=== PATIENT | female | born 1940 | race Caucasian/White ===

== ENCOUNTER 2020-07-01 08:52 | Outpatient (CLI) | payer MEDICARE, BC, SELFPAY ==
--- NOTE | 2020-07-01 09:04 | XR_ITS ---
WS: [id number] LUMBAR SPINE FLEXION AND EXTENSION TECHNIQUE: 3 views of the lumbar spine: Lateral neutral, flexion, and extension views. CLINICAL INFORMATION: SPONDYLOLITHESIS OF LOW BACK COMPARISON: None. FINDINGS: Osteopenia. Grade 1 anterolisthesis L4 on L5 measuring 5 mm. Disc space narrowing worse at L3-L4 and L4-L5. Mild compression inferior endplate L2 vertebral body. This is new since the MRI in 2005. Moder ate facet arthropathy L5-S1. Aortic calcification. Bony fusion T12-L1 disc space. XR/XR lumbar spine f/e only [id number] IMPRESSION: 1. No instability on flexion-extension. 2. Mild compression inferior endplate L2 is new since 2006 but likely chronic.
--- NOTE | 2020-07-01 09:04 | CT_ITS ---
WS: [id number] CT LUMBAR SPINE TECHNIQUE: Noncontrast CT of the lumbar spine with coronal and sagittal reformatted images. CLINICAL INFORMATION: LOW BACK PAIN COMPARISON: MRI 12 18,006 DLP: 2000.[address] scans at [facility] use at least one of these dose optimization techniques: automat ed exposure control; mA and/or kV adjustment per patient size (includes targeted exams where dose is matched to clinical indication); or iterative reconstruction. FINDINGS: Lumbar scoliosis. Mild compression inferior endplate L2 with loss of approximately 25% vertebral body height. This is new since 2005 by appears chronic. Disc space narrowing worse at L3-L4 and L4-L5 wit h vacuum disc phenomenon. Grade 1 anterolisthesis L4 on L5 measuring 5 mm. L1-L2: No significant disc bulging. Mild facet arthropathy. Spinal canal and foramen are patent. L2-L3: Mild disc bulging with mild central canal stenosis. Slight narrowing of the subarticular reces s bilaterally. Moderate facet arthropathy. L3-L4: Mild disc bulging with right eccentric disc osteophytic ridging. Mild to moderate right and no significant left foraminal narrowing. Moderate facet arthropathy. Slight impingement right subarticu lar recess. L4-L5: Grade 1 anterolisthesis. Mild disc bulging with osteophytic ridging. Moderate central canal st enosis with impingement on the traversing L5 nerve roots. Mild right and no significant left foramina l narrowing. Moderate to advanced facet arthropathy. L5-S1: Mild annular bulging. Spinal canal and foramen are patent. Mild to moderate facet arthropathy. Partially visualized left renal cysts. CT/CT lumbar spine wo con* [id number] IMPRESSION: 1. Lumbar scoliosis convex left. 2. Grade 1 anterolisthesis L4 on L5 progressed since 2005. 3. Compression of the inferior endplate L2 is new since 2005 but likely chroni c. MRI could be used to assess for edema if low back pain. 4. Right eccentric disc osteophyte complex L3-4 with mild to moderate right fo raminal narrowing. 5. Moderate central canal stenosis L4-5 due to disc bulging with anterolisthes is and facet arthropathy/ ligament flavum hypertrophy. Impingement on the trave rsing L5 nerve roots bilaterally. 6. Mild right L4-5 foraminal narrowing. 7. Moderate facet arthropathy L3-L5.
== END 2020-07-01 08:53 | disposition home or self-care (01) ==
LOC: RADWPI 09:03
PROVIDERS: Family Provider General Practice; Visit Provider Nurse Practitioner
DX: M43.16 Spondylolisthesis, lumbar region (principal); S32.020A Wedge compression fracture of second lumbar vertebra, initial encounter for closed fracture; X58.XXXA Exposure to other specified factors, initial encounter
CPT/HCPCS: 72120; 72131

== ENCOUNTER 2020-12-27 16:23 | Inpatient (IN) | payer MEDICARE, BC, SELFPAY ==
[2020-12-27] VITALS (7 sets, daily range): BP systolic 87–110; BP diastolic 50–90; PULSE 69–71; RESP 14–25; TEMP 36.6; O2SAT 98–100; BMI 32.3
--- NOTE | 2020-12-27 16:28 | XRR_ITS ---
PROCEDURE INFORMATION: Exam: XR Right Femur Exam date and time: 12/27/2020 5:05 PM Age: 80 years old Clinical indication: Injury or trauma; Fall; Blunt trauma; Thigh or upper leg; Right; Prior surgery; Surgery type: Rthip and RT knee TECHNIQUE: Imaging protocol: XR Right femur. Views: 2 views. COMPARISON: No relevant prior studies available. FINDINGS: Bones/joints: Total right hip arthroplasty is present. Alignment is unremarkable. No periprosthetic fracture. No evidence of prosthetic loosening. No lytic, aggressive bone lesion. Right knee total arthroplasty is present. Alignment is normal. No periprosthetic fracture around the knee. Area of linear dystrophic calcifications in the subcutaneous fat of the proximal lateral right hip. Soft tissues: No soft tissue gas. XR/XR femur RT 1V [id number] IMPRESSION: Unremarkable radiographic appearance of the right hip and knee total arthroplasty.
--- NOTE | 2020-12-27 16:28 | XRR_ITS ---
PROCEDURE INFORMATION: Exam: XR Right Hip with Pelvis when Performed Exam date and time: 12/27/2020 5:05 PM Age: 80 years old Clinical indication: Injury or trauma; Fall; Blunt trauma (contusions or hematomas); Right; Prior surgery; Surgery type: Hip and knee TECHNIQUE: Imaging protocol: XR Right hip with pelvis when performed. Views: 2 or 3 views. COMPARISON: No relevant prior studies available. 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 No periprosthetic fracture. No periprosthetic lucency. Linear area of dystrophic calcification in the subcutaneous fat of the superficial lateral proximal right hip area. Soft tissues: Unremarkable. XR/XR hip RT 2-3V wo/w pel* [id number] IMPRESSION: Unremarkable plain film radiographic appearance of total right hip arthroplasty.
--- NOTE | 2020-12-27 16:28 | XRR_ITS ---
PROCEDURE INFORMATION: Exam: XR Left Ankle Exam date and time: 12/27/2020 5:05 PM Age: 80 years old Clinical indication: Injury or trauma; Fall; Blunt trauma; Ankle; Left TECHNIQUE: Imaging protocol: XR Left ankle. Views: 1 or 2 views. COMPARISON: No relevant prior studies available. FINDINGS: Bones/joints: Diffuse osseous demineralization. Joint space alignments are intact. Small nondisplaced fracture lucency transversely oriented involving the distal fibular epiphysis. Distal tibia unremarkable. Soft tissues: Diffuse soft tissue swelling. Other findings: Arterial wall calcifications. XR/XR ankle LT 2V [id number] IMPRESSION: Acute nondisplaced left distal fibular epiphyseal fracture. Adjacent soft tissue swelling.
--- NOTE | 2020-12-27 16:28 | ECG_ITS ---
[facility] Test Date: 2020-12-27 Pat Name: Gisel Odom Department: Room: Gender: Female Colleter: : 1940 Requested By: Vini Callahan Order Number: [id number] Cameron MD: Eli Haines M.D. Measurements Intervals [place] Rate: 69 P: RI: QRS: -68 QRSD: 214 T: 97 QT: 538 QTc: 580 Interpretive Statements ELECTRONIC VENTRICULAR PACEMAKER PROLONGED QT INTERVAL CRITICAL TEST RESULT No previous ECG available for comparison Electronically Signed On 12-28-2020 16:05:56 [employer] by Eli Haines M.D. [email or web address]
--- NOTE | 2020-12-27 16:31 | ED_ITS ---
Documented by User: Vini Callahan MD 12/27/20 17:51 HPI - Trauma General: Chief Complaint: Fall Stated Complaint: LEFT ANKLE PAIN S/P FALL Time Seen by Provider: 12/27/20 16:24 Source: patient, EMS and RN notes reviewed Limitations: no limitations History of Present Illness: HPI narrative: This patient is a 80-year-old female who presents to the emergency department with complaint of significant left lower leg and ankle pain and right hip pain secondary to a fall in her home. Patient is states she lost her balance. Patient does wear oxygen chronically. EMS reported that she had a low blood pressure. Patient is awake and sitting up and moving freely. Will have nursing staff get a quick blood pressure to make sure it stable prior to any pain medications being given. complaint: fall, injury and pain Onset (ago): minute(s) Loss of Consciousness: no Location - Extremities: Left: lower leg and ankle and Right: hip and thigh Severity scale (1-10): 9 Associated symptoms: Reports abdominal pain; Denies back pain, chest pain, chills, fever(s), headache(s), nausea or vomiting Review of Systems General: Reports: 10 or more systems reviewed and unremarkable except in HPI and below Const: Denies: fever(s), chills, body aches or fatigue Eyes: Denies: change in vision or blurry vision ENMT: Denies: throat pain, hoarseness or mouth pain Card: Denies: chest pain, palpitations, irregular heart rhythm, edema, swelling of feet/ankles or lightheadedness Resp: Denies: dyspnea, productive cough, non-productive cough, wheezing or pain on inspiration GI: Reports: abdominal pain; Denies: nausea or vomiting : Reports: flank pain; Denies: difficulty voiding, dysuria, urinary frequency, urinary urgency or urinary hesitancy Musc: Reports: extremity pain, extremity swelling, joint pain and joint swelling; Denies: neck pain, back pain, joint redness, joint warmth or limited range of mo tion Skin/Breast: Denies: rash, pruritus, erythema or skin tenderness Neuro: Denies: headache(s), numbness in extremities or weakness in extremities Psych: Denies: anxiety or depression Physical Exam Const: COMMON NORMALS: no acute distress, average body habitus, patient oriented x3, no limitations, healthy appearing, alert and well nourished HENMT: COMMON NORMALS: normocephalic, atraumatic, external ears normal, EAC's normal, TM's normal bilaterally, Normal external nose present and Normal nasal mucous membranes and turbinates present HEAD & SCALP: normocephalic and atraumatic NOSE: Normal external nose present and Normal nasal mucous membranes and turbinates present EXTERNAL EAR: Yes external ears normal EXTERNAL AUDITORY CANAL: EAC's normal TYMPANIC MEMBRANE: TM's normal bilaterally Neck/C-Spine: COMMON NORMALS: full ROM, no lymphadenopathy, supple, no meningeal signs, no JVD, Thyroid normal and No carotid bruits THYROID: Thyroid normal Chest: COMMONS NORMALS: normal inspection of the chest, normal palpation of entire chest wall, normal inspection of the breasts and normal palpation of the breasts Breast/axilla inspection: Yes normal inspection of the breasts BREAST/AXILLA PALPATION: Yes normal palpation of the breasts Resp: COMMON NORMALS: normal respiratory effort, No retractions, No use of accessory muscles, clear to auscultation bilaterally and percussion normal AUSCULTATION: clear to auscultation bilaterally PERCUSSION: percussion normal Cardio: COMMON NORMALS: no JVD, regular rate, regular rhythm, S1 normal heart sound present, S2 normal heart sound present, No gallops present (Cardio), No clicks present (Cardio), No murmurs present (Cardio), No rub (Cardio) and Peripheral pulses 2+ throughout RATE: regular rate RHYTHM: regular rhythm HEART SOUNDS: S1 normal heart sound present and S2 normal heart sound present PERIPHERAL PULSES: Peripheral pulses 2+ throughout GI: COMMON NORMALS: Normal to inspection, nondistended, normoactive bowel sounds present, Soft to palpation, non-tender, No hepatosplenomegaly present, no masses and no bruits PALPATION: Yes Soft to palpation and Yes No hepatosplenomegaly present : COMMON NORMALS: Yes no CVA tenderness, Yes normal external appearance, Yes normal appearance of the vagina, Yes normal appearance of the cervix, Yes normal bimanual exam, Yes No adnexal tenderness and Yes no masses BLADDER/KIDNEY EXAM: Yes no CVA tenderness BIMANUAL EXAM - VAGINA & UTERUS: Yes normal bimanual exam Back/Pelvis: COMMON NORMALS: no CVA tenderness, thoracic and lumbar spine normal to inspection, no thoracic nor lumbar tenderness, thoraco-lumbar ROM normal and straight leg raise negative bilaterally Extremity: COMMON NORMALS: capillary refill normal, no joint enlargement, no clubbing, cyanosis or edema, no calf tenderness and no pedal edema RIGHT LOWER EXTREMITY: Yes hip joint (Significant pain on palpation. Decreased range of motion due to pain.) Right hip: Yes neurovascular exam LEFT LOWER EXTREMITY: Yes lower leg and Yes ankle joint (Deformity to the distal lower leg on the left and ankle joint concerning fo) Left ankle: Yes palpation and Yes ROM Neuro: COMMON NORMALS: patient oriented x3 SENSORIUM/ORIENTATION: Yes alert MENINGEAL SIGNS: Yes no meningeal signs MDM - Trauma Medical Records: Attestation: I reviewed the patient's medical records. Lab Data: Attestation: I reviewed the patient's lab results. Labs: Lab Results 12/27/20 12/27/20 12/27/20 Range/Units 16:40 16:40 16:40 WBC 12.3 H (4.0-10.0) 10^3/ uL RBC 3.42 L (4.1-5.3) 10^6/u L Hgb 10.0 L (11.5-15.3) g/dL Hct 30.2 L (37.0-47.0) % MCV 88.3 (81-99) fL MCH 29.2 (28.0-34.0) pg MCHC 33.1 (30.0-36.0) g/dL RDW 12.2 (12.1-15.1) % Plt Count 292 (130-400) 10^3/c mm MPV 10.3 (7.4-10.4) fL Neut % (Auto) 81.3 % Lymph % (Auto) 12.1 % [place] % (Auto) 5.0 % Eos % (Auto) 0.7 % Baso % (Auto) 0.2 % Neut # (Auto) 9.96 H (1.8-7.7) 10^3/u L Lymph # (Auto) 1.5 (0.8-4.8) 10^3/u L [place] # (Auto) 0.6 (0.2-0.9) 10^3/u L Eos # (Auto) 0.1 (0.0-0.8) 10^3/u L Baso # (Auto) 0.0 (0.0-0.1) 10^3/u L Nucleated RBC % (a uto) 0 % Nucleated RBCs # 0.0 /100WBC PT 20.60 H (12.1-14.9) SECO NDS INR 1.70 H (0.8-1.2) APTT 34.5 (23.9-36.7) SECO NDS Sodium 133 L (136-145) mmol/L Potassium 3.8 (3.5-5.1) mmol/L Chloride 95 L (98-107) mmol/L Carbon Dioxide 22 (22-29) mmol/L Anion Gap 19.8 H (5-19) BUN 25 H (8-23) mg/dL Creatinine 2.3 H (0.5-0.9) mg/dL GFR Calculation Not Reportable Glucose 119 H (65-115) mg/dL Calculated Osmolal ity 282 L (285-295) mOsm/k g Lactate (0.5-2.2) mmol/L Calcium 9.4 (8.5-10.5) mg/dL Total Bilirubin 0.4 (0.15-1.2) mg/dL AST 15 (0-32) U/L ALT 7 (0-33) U/L Alkaline Phosphata se 127 H (35-105) IU/L Troponin T Gen 5 n g/L (0-10) ng/L NT-Pro-B Natriuret Pep 2173 H (0-450) pg/mL Total Protein 6.3 L (6.6-8.7) g/dL Albumin 3.8 (3.5-5.2) g/dL Globulin 2.5 (1.3-4.6) g/dL Urine Color (Yellow) Urine Appearance (CLEAR) Urine pH (5-7) Ur Specific Gravit y (1.005-1.030) Urine Protein (Negative) Urine Glucose (UA) (Normal) Urine Ketones (Negative) Urine Blood (Negative) Urine Nitrate (Negative) Urine Bilirubin (Negative) Urine Urobilinogen (Negative) mg/dL Ur Leukocyte April ase (Negative) Urine Opiates Scre en (Negative) ng/mL Ur Barbiturates Sc reen (Negative) ng/mL Ur Phencyclidine S crn (Negative) ng/mL Ur Amphetamines Sc reen (Negative) ng/mL U Benzodiazepines Scrn (Negative) ng/mL Urine Cocaine Scre en (Negative) ng/mL U Marijuana (THC) Screen (Negative) ng/mL 12/27/20 12/27/20 12/27/20 Range/Units 16:40 18:00 18:00 WBC (4.0-10.0) 10^3/ uL RBC (4.1-5.3) 10^6/u L Hgb (11.5-15.3) g/dL Hct (37.0-47.0) % MCV (81-99) fL MCH (28.0-34.0) pg MCHC (30.0-36.0) g/dL RDW (12.1-15.1) % Plt Count (130-400) 10^3/c mm MPV (7.4-10.4) fL Neut % (Auto) % Lymph % (Auto) % [place] % (Auto) % Eos % (Auto) % Baso % (Auto) % Neut # (Auto) (1.8-7.7) 10^3/u L Lymph # (Auto) (0.8-4.8) 10^3/u L [place] # (Auto) (0.2-0.9) 10^3/u L Eos # (Auto) (0.0-0.8) 10^3/u L Baso # (Auto) (0.0-0.1) 10^3/u L Nucleated RBC % (a uto) % Nucleated RBCs # /100WBC PT (12.1-14.9) SECO NDS INR (0.8-1.2) APTT (23.9-36.7) SECO NDS Sodium (136-145) mmol/L Potassium (3.5-5.1) mmol/L Chloride (98-107) mmol/L Carbon Dioxide (22-29) mmol/L Anion Gap (5-19) BUN (8-23) mg/dL Creatinine (0.5-0.9) mg/dL GFR Calculation Glucose (65-115) mg/dL Calculated Osmolal ity (285-295) mOsm/k g Lactate (0.5-2.2) mmol/L Calcium (8.5-10.5) mg/dL Total Bilirubin (0.15-1.2) mg/dL AST (0-32) U/L ALT (0-33) U/L Alkaline Phosphata se (35-105) IU/L Troponin T Gen 5 n g/L 44 H (0-10) ng/L NT-Pro-B Natriuret Pep (0-450) pg/mL Total Protein (6.6-8.7) g/dL Albumin (3.5-5.2) g/dL Globulin (1.3-4.6) g/dL Urine Color Yellow (Yellow) Urine Appearance Clear (CLEAR) Urine pH 5 (5-7) Ur Specific Gravit y 1.015 (1.005-1.030) Urine Protein Neg (Negative) Urine Glucose (UA) Norm (Normal) Urine Ketones Negative (Negative) Urine Blood Neg (Negative) Urine Nitrate Negative (Negative) Urine Bilirubin Neg (Negative) Urine Urobilinogen Norm (Negative) mg/dL Ur Leukocyte April ase Negative (Negative) Urine Opiates Scre en Negative (Negative) ng/mL Ur Barbiturates Sc reen Negative (Negative) ng/mL Ur Phencyclidine S crn Negative (Negative) ng/mL Ur Amphetamines Sc reen Negative (Negative) ng/mL U Benzodiazepines Scrn Negative (Negative) ng/mL Urine Cocaine Scre en Negative (Negative) ng/mL U Marijuana (THC) Screen Negative (Negative) ng/mL 12/27/20 Range/Units 18:49 WBC (4.0-10.0) 10^3/ uL RBC (4.1-5.3) 10^6/u L Hgb (11.5-15.3) g/dL Hct (37.0-47.0) % MCV (81-99) fL MCH (28.0-34.0) pg MCHC (30.0-36.0) g/dL RDW (12.1-15.1) % Plt Count (130-400) 10^3/c mm MPV (7.4-10.4) fL Neut % (Auto) % Lymph % (Auto) % [place] % (Auto) % Eos % (Auto) % Baso % (Auto) % Neut # (Auto) (1.8-7.7) 10^3/u L Lymph # (Auto) (0.8-4.8) 10^3/u L [place] # (Auto) (0.2-0.9) 10^3/u L Eos # (Auto) (0.0-0.8) 10^3/u L Baso # (Auto) (0.0-0.1) 10^3/u L Nucleated RBC % (a uto) % Nucleated RBCs # /100WBC PT (12.1-14.9) SECO NDS INR (0.8-1.2) APTT (23.9-36.7) SECO NDS Sodium (136-145) mmol/L Potassium (3.5-5.1) mmol/L Chloride (98-107) mmol/L Carbon Dioxide (22-29) mmol/L Anion Gap (5-19) BUN (8-23) mg/dL Creatinine (0.5-0.9) mg/dL GFR Calculation Glucose (65-115) mg/dL Calculated Osmolal ity (285-295) mOsm/k g Lactate 3.7 H (0.5-2.2) mmol/L Calcium (8.5-10.5) mg/dL Total Bilirubin (0.15-1.2) mg/dL AST (0-32) U/L ALT (0-33) U/L Alkaline Phosphata se (35-105) IU/L Troponin T Gen 5 n g/L (0-10) ng/L NT-Pro-B Natriuret Pep (0-450) pg/mL Total Protein (6.6-8.7) g/dL Albumin (3.5-5.2) g/dL Globulin (1.3-4.6) g/dL Urine Color (Yellow) Urine Appearance (CLEAR) Urine pH (5-7) Ur Specific Gravit y (1.005-1.030) Urine Protein (Negative) Urine Glucose (UA) (Normal) Urine Ketones (Negative) Urine Blood (Negative) Urine Nitrate (Negative) Urine Bilirubin (Negative) Urine Urobilinogen (Negative) mg/dL Ur Leukocyte April ase (Negative) Urine Opiates Scre en (Negative) ng/mL Ur Barbiturates Sc reen (Negative) ng/mL Ur Phencyclidine S crn (Negative) ng/mL Ur Amphetamines Sc reen (Negative) ng/mL U Benzodiazepines Scrn (Negative) ng/mL Urine Cocaine Scre en (Negative) ng/mL U Marijuana (THC) Screen (Negative) ng/mL EKG Data^: EKG 1: Attestation: I personally reviewed and interpreted this EKG as follows: EKG interpretation date: 12/27/20 EKG interpretation time: 17:02 Prior EKG tracings: not available for review Interpretation: Paced rhythm heart rate 69 nonspecific EKG Discharge Plan Discharge Patient Disposition: Admitted As Inpatient Clinical Impression: Syncope Fall Qualifiers: Encounter type: initial encounter Qualified Code(s): W19.XXXA - Unspecified fall, initial encounter Fibula fracture Qualifiers: Encounter type: initial encounter Fibula location: proximal Fracture type: closed Fracture morphology: unspecified fracture morphology Laterality: left Qualified Code(s): S82.832A - Other fracture of upper and lower end of left fibula, initial encounter for closed fracture Condition: Stable Coding Level of Care Code ED Patient Support Tech for Chg Fwd Exam Comprehensive Documented by User: Jason Levy MD 12/27/20 20:30 HPI - Trauma General: Chief Complaint: Fall Stated Complaint: LEFT ANKLE PAIN S/P FALL Time Seen by Provider: 12/27/20 16:24 MDM - Trauma MDM Narrative: Medical decision making narrative: Patient presents here with fibular fracture from a fall. Patient here is not able to ambulate and I feel with the weather she would not be able to get in her house. I spoke to the hospitalist will admit for observation. She has no other injuries. Lab Data: Labs: Lab Results 12/27/20 12/27/20 12/27/20 Range/Units 16:40 16:40 16:40 WBC 12.3 H (4.0-10.0) 10^3/ uL RBC 3.42 L (4.1-5.3) 10^6/u L Hgb 10.0 L (11.5-15.3) g/dL Hct 30.2 L (37.0-47.0) % MCV 88.3 (81-99) fL MCH 29.2 (28.0-34.0) pg MCHC 33.1 (30.0-36.0) g/dL RDW 12.2 (12.1-15.1) % Plt Count 292 (130-400) 10^3/c mm MPV 10.3 (7.4-10.4) fL Neut % (Auto) 81.3 % Lymph % (Auto) 12.1 % [place] % (Auto) 5.0 % Eos % (Auto) 0.7 % Baso % (Auto) 0.2 % Neut # (Auto) 9.96 H (1.8-7.7) 10^3/u L Lymph # (Auto) 1.5 (0.8-4.8) 10^3/u L [place] # (Auto) 0.6 (0.2-0.9) 10^3/u L Eos # (Auto) 0.1 (0.0-0.8) 10^3/u L Baso # (Auto) 0.0 (0.0-0.1) 10^3/u L Nucleated RBC % (a uto) 0 % Nucleated RBCs # 0.0 /100WBC PT 20.60 H (12.1-14.9) SECO NDS INR 1.70 H (0.8-1.2) APTT 34.5 (23.9-36.7) SECO NDS Sodium 133 L (136-145) mmol/L Potassium 3.8 (3.5-5.1) mmol/L Chloride 95 L (98-107) mmol/L Carbon Dioxide 22 (22-29) mmol/L Anion Gap 19.8 H (5-19) BUN 25 H (8-23) mg/dL Creatinine 2.3 H (0.5-0.9) mg/dL GFR Calculation Not Reportable Glucose 119 H (65-115) mg/dL Calculated Osmolal ity 282 L (285-295) mOsm/k g Lactate (0.5-2.2) mmol/L Calcium 9.4 (8.5-10.5) mg/dL Total Bilirubin 0.4 (0.15-1.2) mg/dL AST 15 (0-32) U/L ALT 7 (0-33) U/L Alkaline Phosphata se 127 H (35-105) IU/L Troponin T Gen 5 n g/L (0-10) ng/L NT-Pro-B Natriuret Pep 2173 H (0-450) pg/mL Total Protein 6.3 L (6.6-8.7) g/dL Albumin 3.8 (3.5-5.2) g/dL Globulin 2.5 (1.3-4.6) g/dL Urine Color (Yellow) Urine Appearance (CLEAR) Urine pH (5-7) Ur Specific Gravit y (1.005-1.030) Urine Protein (Negative) Urine Glucose (UA) (Normal) Urine Ketones (Negative) Urine Blood (Negative) Urine Nitrate (Negative) Urine Bilirubin (Negative) Urine Urobilinogen (Negative) mg/dL Ur Leukocyte April ase (Negative) Urine Opiates Scre en (Negative) ng/mL Ur Barbiturates Sc reen (Negative) ng/mL Ur Phencyclidine S crn (Negative) ng/mL Ur Amphetamines Sc reen (Negative) ng/mL U Benzodiazepines Scrn (Negative) ng/mL Urine Cocaine Scre en (Negative) ng/mL U Marijuana (THC) Screen (Negative) ng/mL 12/27/20 12/27/20 12/27/20 Range/Units 16:40 18:00 18:00 WBC (4.0-10.0) 10^3/ uL RBC (4.1-5.3) 10^6/u L Hgb (11.5-15.3) g/dL Hct (37.0-47.0) % MCV (81-99) fL MCH (28.0-34.0) pg MCHC (30.0-36.0) g/dL RDW (12.1-15.1) % Plt Count (130-400) 10^3/c mm MPV (7.4-10.4) fL Neut % (Auto) % Lymph % (Auto) % [place] % (Auto) % Eos % (Auto) % Baso % (Auto) % Neut # (Auto) (1.8-7.7) 10^3/u L Lymph # (Auto) (0.8-4.8) 10^3/u L [place] # (Auto) (0.2-0.9) 10^3/u L Eos # (Auto) (0.0-0.8) 10^3/u L Baso # (Auto) (0.0-0.1) 10^3/u L Nucleated RBC % (a uto) % Nucleated RBCs # /100WBC PT (12.1-14.9) SECO NDS INR (0.8-1.2) APTT (23.9-36.7) SECO NDS Sodium (136-145) mmol/L Potassium (3.5-5.1) mmol/L Chloride (98-107) mmol/L Carbon Dioxide (22-29) mmol/L Anion Gap (5-19) BUN (8-23) mg/dL Creatinine (0.5-0.9) mg/dL GFR Calculation Glucose (65-115) mg/dL Calculated Osmolal ity (285-295) mOsm/k g Lactate (0.5-2.2) mmol/L Calcium (8.5-10.5) mg/dL Total Bilirubin (0.15-1.2) mg/dL AST (0-32) U/L ALT (0-33) U/L Alkaline Phosphata se (35-105) IU/L Troponin T Gen 5 n g/L 44 H (0-10) ng/L NT-Pro-B Natriuret Pep (0-450) pg/mL Total Protein (6.6-8.7) g/dL Albumin (3.5-5.2) g/dL Globulin (1.3-4.6) g/dL Urine Color Yellow (Yellow) Urine Appearance Clear (CLEAR) Urine pH 5 (5-7) Ur Specific Gravit y 1.015 (1.005-1.030) Urine Protein Neg (Negative) Urine Glucose (UA) Norm (Normal) Urine Ketones Negative (Negative) Urine Blood Neg (Negative) Urine Nitrate Negative (Negative) Urine Bilirubin Neg (Negative) Urine Urobilinogen Norm (Negative) mg/dL Ur Leukocyte April ase Negative (Negative) Urine Opiates Scre en Negative (Negative) ng/mL Ur Barbiturates Sc reen Negative (Negative) ng/mL Ur Phencyclidine S crn Negative (Negative) ng/mL Ur Amphetamines Sc reen Negative (Negative) ng/mL U Benzodiazepines Scrn Negative (Negative) ng/mL Urine Cocaine Scre en Negative (Negative) ng/mL U Marijuana (THC) Screen Negative (Negative) ng/mL 12/27/20 Range/Units 18:49 WBC (4.0-10.0) 10^3/ uL RBC (4.1-5.3) 10^6/u L Hgb (11.5-15.3) g/dL Hct (37.0-47.0) % MCV (81-99) fL MCH (28.0-34.0) pg MCHC (30.0-36.0) g/dL RDW (12.1-15.1) % Plt Count (130-400) 10^3/c mm MPV (7.4-10.4) fL Neut % (Auto) % Lymph % (Auto) % [place] % (Auto) % Eos % (Auto) % Baso % (Auto) % Neut # (Auto) (1.8-7.7) 10^3/u L Lymph # (Auto) (0.8-4.8) 10^3/u L [place] # (Auto) (0.2-0.9) 10^3/u L Eos # (Auto) (0.0-0.8) 10^3/u L Baso # (Auto) (0.0-0.1) 10^3/u L Nucleated RBC % (a uto) % Nucleated RBCs # /100WBC PT (12.1-14.9) SECO NDS INR (0.8-1.2) APTT (23.9-36.7) SECO NDS Sodium (136-145) mmol/L Potassium (3.5-5.1) mmol/L Chloride (98-107) mmol/L Carbon Dioxide (22-29) mmol/L Anion Gap (5-19) BUN (8-23) mg/dL Creatinine (0.5-0.9) mg/dL GFR Calculation Glucose (65-115) mg/dL Calculated Osmolal ity (285-295) mOsm/k g Lactate 3.7 H (0.5-2.2) mmol/L Calcium (8.5-10.5) mg/dL Total Bilirubin (0.15-1.2) mg/dL AST (0-32) U/L ALT (0-33) U/L Alkaline Phosphata se (35-105) IU/L Troponin T Gen 5 n g/L (0-10) ng/L NT-Pro-B Natriuret Pep (0-450) pg/mL Total Protein (6.6-8.7) g/dL Albumin (3.5-5.2) g/dL Globulin (1.3-4.6) g/dL Urine Color (Yellow) Urine Appearance (CLEAR) Urine pH (5-7) Ur Specific Gravit y (1.005-1.030) Urine Protein (Negative) Urine Glucose (UA) (Normal) Urine Ketones (Negative) Urine Blood (Negative) Urine Nitrate (Negative) Urine Bilirubin (Negative) Urine Urobilinogen (Negative) mg/dL Ur Leukocyte April ase (Negative) Urine Opiates Scre en (Negative) ng/mL Ur Barbiturates Sc reen (Negative) ng/mL Ur Phencyclidine S crn (Negative) ng/mL Ur Amphetamines Sc reen (Negative) ng/mL U Benzodiazepines Scrn (Negative) ng/mL Urine Cocaine Scre en (Negative) ng/mL U Marijuana (THC) Screen (Negative) ng/mL Imaging Data^: xr ankle L: Radiologist's impression: [address] [address] XRay Report Signed Patient: Gisel Odom Unit #: [id number] : 1940 Age/Sex: 80 / F ADM Date: 12/27/20 Loc: ER Room/Bed: Attending Dr: Ordering Provider/Ordering MD: Vini Callahan MD Date of Service: 12/27/20 Procedure(s): XR ankle LT 2V 60038 Accession Number(s): [id number] Report Number: [id number] PROCEDURE INFORMATION: Exam: XR Left Ankle Exam date and time: 12/27/2020 5:05 PM Age: 80 years old Clinical indication: Injury or trauma; Fall; Blunt trauma; Ankle; Left TECHNIQUE: Imaging protocol: XR Left ankle. Views: 1 or 2 views. COMPARISON: No relevant prior studies available. FINDINGS: Bones/joints: Diffuse osseous demineralization. Joint space alignments are intact. Small nondisplaced fracture lucency transversely oriented involving the distal fibular epiphysis. Distal tibia unremarkable. Soft tissues: Diffuse soft tissue swelling. Other findings: Arterial wall calcifications. XR/XR ankle LT 2V 22165 IMPRESSION: Acute nondisplaced left distal fibular epiphyseal fracture. Adjacent soft tissue swelling. xr hip r: Radiologist's impression: [facility] [address] [place] [address]. [place] [address] XRay Report Signed Patient: Gisel Odom Unit #: [id number] : 1940 Age/Sex: 80 / F ADM Date: 12/27/20 Loc: ER Room/Bed: Attending Dr: Ordering Provider/Ordering MD: Vini Callahan MD Date of Service: 12/27/20 Procedure(s): XR hip RT 2-3V wo/w pel* 54543 Accession Number(s): [id number] Report Number: [id number] PROCEDURE INFORMATION: Exam: XR Right Hip with Pelvis when Performed Exam date and time: 12/27/2020 5:05 PM Age: 80 years old Clinical indication: Injury or trauma; Fall; Blunt trauma (contusions or hematomas); Right; Prior surgery; Surgery type: Hip and knee TECHNIQUE: Imaging protocol: XR Right hip with pelvis when performed. Views: 2 or 3 views. COMPARISON: No relevant prior studies available. 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 No periprosthetic fracture. No periprosthetic lucency. Linear area of dystrophic calcification in the subcutaneous fat of the superficial lateral proximal right hip area. Soft tissues: Unremarkable. XR/XR hip RT 2-3V wo/w pel* [id number] IMPRESSION: Unremarkable plain film radiographic appearance of total right hip arthroplasty. xr femur r: Radiologist's impression: [facility] [address] [place] [address]. [place] [address] XRay Report Signed Patient: Gisel Odom Unit #: [id number] : 1940 Age/Sex: 80 / F ADM Date: 12/27/20 Loc: ER Room/Bed: Attending Dr: Ordering Provider/Ordering MD: Vini Callahan MD Date of Service: 12/27/20 Procedure(s): XR femur RT 1V 19399 Accession Number(s): [id number] Report Number: [id number] PROCEDURE INFORMATION: Exam: XR Right Femur Exam date and time: 12/27/2020 5:05 PM Age: 80 years old Clinical indication: Injury or trauma; Fall; Blunt trauma; Thigh or upper leg; Right; Prior surgery; Surgery type: Rthip and RT knee TECHNIQUE: Imaging protocol: XR Right femur. Views: 2 views. COMPARISON: No relevant prior studies available. FINDINGS: Bones/joints: Total right hip arthroplasty is present. Alignment is unremarkable. No periprosthetic fracture. No evidence of prosthetic loosening. No lytic, aggressive bone lesion. Right knee total arthroplasty is present. Alignment is normal. No periprosthetic fracture around the knee. Area of linear dystrophic calcifications in the subcutaneous fat of the proximal lateral right hip. Soft tissues: No soft tissue gas. XR/XR femur RT 1V 64762 IMPRESSION: Unremarkable radiographic appearance of the right hip and knee total arthroplasty. CXR: Radiologist's impression: [address] [address] XRay Report Signed Patient: Gisel Odom Unit #: [id number] : 1940 Age/Sex: 80 / F ADM Date: 12/27/20 Loc: ER Room/Bed: Attending Dr: Ordering Provider/Ordering MD: Vini Callahan MD Date of Service: 12/27/20 Procedure(s): XR chest 1V portable [id number] Accession Number(s): [id number] Report Number: [id number] PROCEDURE INFORMATION: Exam: XR Chest, 1 View Exam date and time: 12/27/2020 5:05 PM Age: 80 years old Clinical indication: Injury or trauma; Fall; Blunt trauma (contusions or hematomas) TECHNIQUE: Imaging protocol: XR of the chest Views: 1 view. COMPARISON: No relevant prior studies available. FINDINGS: Tubes, catheters and devices: Left chest ICD position is grossly unremarkable. Lungs: Unremarkable. No consolidation. Pleural spaces: Unremarkable. No pleural effusion. No pneumothorax. Heart/Mediastinum: Mild cardiac enlargement. Bones/joints: Left shoulder reverse arthroplasty with unremarkable alignment. XR/XR chest 1V portable [id number] IMPRESSION: No acute thoracic traumatic injury identified. CT Head: Radiologist's impression: [facility] [place] [address] CT Scan Report Signed Patient: Gisel Odom Unit #: [id number] : [id number] Age/Sex: 80 / F ADM Date: 12/27/20 Loc: ER Room/Bed: Attending Dr: Ordering Provider/Ordering MD: Jason Levy MD Date of Service: 12/27/20 Procedure(s): CT head wo con* 43021 Accession Number(s): [id number] Report Number: [id number] PROCEDURE INFORMATION: Exam: CT Head Without Contrast Exam date and time: 12/27/2020 6:52 PM Age: 80 years old Clinical indication: Injury or trauma; Blunt trauma (contusions or hematomas); Without loss of consciousness; Patient HX: Fall from standing denies loc TECHNIQUE: Imaging protocol: Computed tomography of the head without contrast. Radiation optimization: All CT scans at this facility use at least one of these dose optimization techniques: automated exposure control; mA and/or kV adjustment per patient size (includes targeted exams where dose is matched to clinical indication); or iterative reconstruction. COMPARISON: No relevant prior studies available. RADIATION DOSE METRICS: Total DLP (mGy-cm): 1481.03 FINDINGS: Brain: There is moderate cerebral atrophy. No midline shift of brain. No intracranial hemorrhage. No intracranial mass. Camacho matter white matter interfaces are preserved. Cerebral ventricles: No ventriculomegaly. Bones/joints: Unremarkable. No acute fracture. Paranasal sinuses: Visualized sinuses are unremarkable. No fluid levels. Mastoid air cells: Visualized mastoid air cells are well aerated. Soft tissues: Unremarkable. CT/CT head wo con* [id number] IMPRESSION: Negative for intracranial injury. Radiation Dose CTDIVOL = (mGy): DLP = 1481.03 (mGy-cm) Other CT: Radiologist's impression: [address] [address] [address] Scan Report Signed Patient: Gisel Odom Unit #: [id number] : 1940 Age/Sex: 80 / F ADM Date: 12/27/20 Loc: ER Room/Bed: Attending Dr: Ordering Provider/Ordering MD: Jason Levy MD Date of Service: 12/27/20 Procedure(s): CT cervical spin wo con* [id number] Accession Number(s): [id number] Report Number: [id number] PROCEDURE INFORMATION: Exam: CT Cervical Spine Without Contrast Exam date and time: 12/27/2020 6:52 PM Age: 80 years old Clinical indication: Injury or trauma; Blunt trauma; Patient HX: Fall from standing TECHNIQUE: Imaging protocol: Computed tomography images of the cervical spine without contrast. Radiation optimization: All CT scans at this facility use at least one of these dose optimization techniques: automated exposure control; mA and/or kV adjustment per patient size (includes targeted exams where dose is matched to clinical indication); or iterative reconstruction. COMPARISON: No relevant prior studies available. RADIATION DOSE METRICS: Total DLP (mGy-cm): 619.89 FINDINGS: Vertebrae: No acute fractures. Anterolisthesis of C2 on C3 about 3 mm. Anterolisthesis of C3 on C4 about 2 mm. Anterolisthesis of C4 on C5 about 3 mm. Facet joints are intact with unremarkable alignment. Severe diffuse spondyloarthropathy changes. Bones are diffusely demineralized. Soft tissues: Unremarkable. Vasculature: Atherosclerotic plaques bilateral carotid artery bulbs. Lungs: Lung apices are normal. CT/CT cervical spin wo con* [id number] IMPRESSION: Negative for acute cervical spine fracture. Radiation Dose CTDIVOL = (mGy): DLP = 619.89 (mGy-cm) Discharge Plan Discharge Patient Disposition: Admitted As Inpatient Clinical Impression: Syncope Fall Qualifiers: Encounter type: initial encounter Qualified Code(s): W19.XXXA - Unspecified fall, initial encounter Fibula fracture Qualifiers: Encounter type: initial encounter Fibula location: proximal Fracture type: closed Fracture morphology: unspecified fracture morphology Laterality: left Qualified Code(s): S82.832A - Other fracture of upper and lower end of left fibula, initial encounter for closed fracture Condition: Stable Coding Level of Care Code ED Patient Support Tech for Sherrie Fwd Exam Comprehensive
[2020-12-27] MEDS: ondansetron 2 mg/ML SDV 2 mL 4 MG IVP (16:55)
[2020-12-27] MEDS: sodium chloride 0.9% 1,000 ML 999 ML IV (16:57)
[2020-12-27 17:30] LABS: Partial Thromboplastin Time 34.5 SECONDS (23.9-36.7)
[2020-12-27 17:34] LABS: Troponin T (5th) Once 44 ng/L (0-10)
--- NOTE | 2020-12-27 17:37 | XRR_ITS ---
PROCEDURE INFORMATION: Exam: XR Left Knee Exam date and time: 12/27/2020 6:45 PM Age: 80 years old Clinical indication: Pain and injury or trauma; Fall; Blunt trauma; Knee; Left; Injury date: 12/27/20 TECHNIQUE: Imaging protocol: XR Left knee. Views: 3 views. COMPARISON: No relevant prior studies available. FINDINGS: Bones/joints: There is a nondisplaced comminuted fracture of the proximal fibular diaphysis/diametaphysis. Soft tissues: Normal. XR/XR knee LT 3V* [id number] IMPRESSION: Nondisplaced comminuted fracture of the proximal fibular diaphysis/diametaphysis.
[2020-12-27 17:42] LABS: Alanine Aminotransferase 7 U/L (0-33); Albumin Level 3.8 g/dL (3.5-5.2); Alkaline Phosphatase 127 IU/L (35-105); Anion Gap 19.8 (5-19); Aspartate Amino Transferase 15 U/L (0-32); Blood Urea Nitrogen 25 mg/dL (8-23); Calcium 9.4 mg/dL (8.5-10.5); Carbon Dioxide 22 mmol/L (22-29); Chloride 95 mmol/L (98-107); Globulin 2.5 g/dL (1.3-4.6); Glucose 119 mg/dL (65-115); NT Pro B Type Natriuretic Pept 2173 pg/mL (0-450); Osmolality Calculated 282 mOsm/kg (285-295); Potassium 3.8 mmol/L (3.5-5.1); Sodium 133 mmol/L (136-145); Total Bilirubin 0.4 mg/dL (0.15-1.2); Total Protein 6.3 g/dL (6.6-8.7)
[2020-12-27] MEDS: naloxone 0.4 mg/ml SDV IVP (17:43)
[2020-12-27 17:51] LABS: Basophils % 0.2 %; Eosinophils # 0.1 10^3/uL (0.0-0.8); Eosinophils % 0.7 %; Hematocrit 30.2 % (37.0-47.0); Lymphocytes # 1.5 10^3/uL (0.8-4.8); Lymphocytes % 12.1 %; Mean Corpuscular HGB Conc 33.1 g/dL (30.0-36.0); Mean Corpuscular Hemoglobin 29.2 pg (28.0-34.0); Mean Corpuscular Volume 88.3 fL (81-99); Mean Platelet Volume 10.3 fL (7.4-10.4); Monocytes # 0.6 10^3/uL (0.2-0.9); Neutrophils # 9.96 10^3/uL (1.8-7.7); Neutrophils % 81.3 %; Nucleated Red Blood Cells % 0 %; Platelet Count 292 10^3/cmm (130-400); Red Blood Count 3.42 10^6/uL (4.1-5.3); Red Cell Distribution Width 12.2 % (12.1-15.1); White Blood Count 12.3 10^3/uL (4.0-10.0)
--- NOTE | 2020-12-27 18:05 | CTR_ITS ---
PROCEDURE INFORMATION: Exam: CT Head Without Contrast Exam date and time: 12/27/2020 6:52 PM Age: 80 years old Clinical indication: Injury or trauma; Blunt trauma (contusions or hematomas); Without loss of consciousness; Patient HX: Fall from standing denies loc TECHNIQUE: Imaging protocol: Computed tomography of the head without contrast. Radiation optimization: All CT scans at this facility use at least one of these dose optimization techniques: automated exposure control; mA and/or kV adjustment per patient size (includes targeted exams where dose is matched to clinical indication); or iterative reconstruction. COMPARISON: No relevant prior studies available. RADIATION DOSE METRICS: Total DLP (mGy-cm): 1481.03 FINDINGS: Brain: There is moderate cerebral atrophy. No midline shift of brain. No intracranial hemorrhage. No intracranial mass. Camacho matter white matter interfaces are preserved. Cerebral ventricles: No ventriculomegaly. Bones/joints: Unremarkable. No acute fracture. Paranasal sinuses: Visualized sinuses are unremarkable. No fluid levels. Mastoid air cells: Visualized mastoid air cells are well aerated. Soft tissues: Unremarkable. CT/CT head wo con* [id number] IMPRESSION: Negative for intracranial injury. Radiation Dose CTDIVOL = (mGy): DLP = 1481.03 (mGy-cm)
--- NOTE | 2020-12-27 18:05 | CTR_ITS ---
PROCEDURE INFORMATION: Exam: CT Cervical Spine Without Contrast Exam date and time: 12/27/2020 6:52 PM Age: 80 years old Clinical indication: Injury or trauma; Blunt trauma; Patient HX: Fall from standing TECHNIQUE: Imaging protocol: Computed tomography images of the cervical spine without contrast. Radiation optimization: All CT scans at this facility use at least one of these dose optimization techniques: automated exposure control; mA and/or kV adjustment per patient size (includes targeted exams where dose is matched to clinical indication); or iterative reconstruction. COMPARISON: No relevant prior studies available. RADIATION DOSE METRICS: Total DLP (mGy-cm): 619.89 FINDINGS: Vertebrae: No acute fractures. Anterolisthesis of C2 on C3 about 3 mm. Anterolisthesis of C3 on C4 about 2 mm. Anterolisthesis of C4 on C5 about 3 mm. Facet joints are intact with unremarkable alignment. Severe diffuse spondyloarthropathy changes. Bones are diffusely demineralized. Soft tissues: Unremarkable. Vasculature: Atherosclerotic plaques bilateral carotid artery bulbs. Lungs: Lung apices are normal. CT/CT cervical spin wo con* [id number] IMPRESSION: Negative for acute cervical spine fracture. Radiation Dose CTDIVOL = (mGy): DLP = 619.89 (mGy-cm)
--- NOTE | 2020-12-27 18:05 | CTR_ITS ---
PROCEDURE INFORMATION: Exam: CT Abdomen And Pelvis Without Contrast Exam date and time: 12/27/2020 6:52 PM Age: 80 years old Clinical indication: Injury or trauma; Blunt; Generalized; Prior surgery; Surgery date: 6+ months; Surgery type: Hyst, b hips; Patient HX: Fall from standing TECHNIQUE: Imaging protocol: Computed tomography of the abdomen and pelvis without contrast. Radiation optimization: All CT scans at this facility use at least one of these dose optimization techniques: automated exposure control; mA and/or kV adjustment per patient size (includes targeted exams where dose is matched to clinical indication); or iterative reconstruction. COMPARISON: CR XR hip LT 2-3V wo/w pel* [id number] 12/27/2020 6:36 PM RADIATION DOSE METRICS: Total DLP (mGy-cm): 1412.91 FINDINGS: Lungs: Moderate emphysema. Lung bases are clear. Liver: Normal. No mass. Gallbladder and bile ducts: Normal. No calcified stones. No ductal dilation. Pancreas: Normal. No ductal dilation. Spleen: Normal. No splenomegaly. Adrenal glands: Normal. No mass. Kidneys and ureters: Severe cortical atrophy of both kidneys. No hydronephrosis. Several simple left renal cortical cyst. No renal stones. Stomach and bowel: Large fecal volume. No focal inflammation of bowel or mesentery. No evidence of bowel obstruction or perforation. Appendix: No evidence of appendicitis. Intraperitoneal space: Negative for pneumoperitoneum. Negative for hemoperitoneum. Vasculature: Diffuse atherosclerosis of abdominal aorta without aneurysm. Lymph nodes: Unremarkable. No enlarged lymph nodes. Urinary bladder: Bladder decompressed via Ruiz catheter. Reproductive: Hysterectomy. Bones/joints: Bilateral hip arthroplasty with unremarkable alignment. There is a small fracture defect in the right-sided inferior pubic ramus of uncertain chronicity. There appears to be some bone callus. Mild vertebral body wedging in the lumbar spine at L2 is age indeterminate but no convincing evidence of acute fracture lucency. Grade 1 L4-L5 spondylolisthesis secondary to facet joint arthritis. Severe diffuse spondyloarthropathy of spine. Soft tissues: No soft tissue contusions in the abdominal wall. CT/CT abdomen pelvis wo con [id number] IMPRESSION: 1. No acute abdominopelvic injury is identified. 2. Nondisplaced right inferior pubic ramus fracture; suspect nonacute finding. 3. Mild severity age indeterminate L2 vertebral fracture; favor nonacute finding. COMMENTS: Consistent with the [employer]'s Incidental Findings Committee white paper (J Am Adilson Radiol 2018): Any incidental renal lesion less than 1 cm or classified as too small to characterize, or any incidental cystic renal lesion characterized as simple-appearing, is likely benign. No follow-up imaging is recommended for these lesions per consensus recommendations based on imaging criteria. Radiation Dose CTDIVOL = (mGy): DLP = 1412.91 (mGy-cm)
[2020-12-27 18:11] LABS: Add Urine Microscopic? NO
[2020-12-27 18:14] LABS: Bilirubin Urine Neg (Negative); Blood Urine Neg (Negative); Glucose Urine UA Norm (Normal); Ketones Urine Negative (Negative); Leukocyte Esterase Urine Negative (Negative); Nitrate Urine Negative (Negative); Protein Urine Neg (Negative); Specific Gravity, Urine 1.015 (1.005-1.030); Urine Appearance Clear (CLEAR); Urine Color Yellow (Yellow); Urobilinogen Urine Norm (Negative); pH Urine 5 (5-7)
[2020-12-27 18:21] LABS: Amphetamines Screen Urine Negative (Negative); Barbiturates Screen Urine Negative (Negative); Benzodiazepines Screen Urine Negative (Negative); Cocaine Screen Urine Negative (Negative); Opiate Screen Urine Negative (Negative); PCP Screen Urine Negative (Negative); THC Screen Urine Negative (Negative)
--- NOTE | 2020-12-27 18:33 | XRR_ITS ---
PROCEDURE INFORMATION: Exam: XR Left Hip with Pelvis when Performed Exam date and time: 12/27/2020 6:47 PM Age: 80 years old Clinical indication: Pain and injury or trauma; Fall; Blunt trauma (contusions or hematomas); Hip pain; Injury date: 12/27/20; Prior surgery; Surgery type: Left hip, right hip TECHNIQUE: Imaging protocol: XR Left hip with pelvis when performed. Views: 2 or 3 views. COMPARISON: No relevant prior studies available. FINDINGS: Bones/joints: The patient is status post left total hip arthroplasty. No evidence of hardware related complication. No fracture or dislocation seen. Soft tissues: Unremarkable. XR/XR hip LT 2-3V wo/w pel* [id number] IMPRESSION: 1. Status post left total hip arthroplasty, without evidence of hardware related complication. 2. No fracture or dislocation.
[2020-12-27 19:13] LABS: Lactate (Lactic Acid level) 3.7 mmol/L (0.5-2.2)
--- NOTE | 2020-12-27 22:04 | PM.HP ---
Providers/Chief Complaint Admitting Physician: Moniac Ragland MD Primary Care Provider: Dr Phillip Harrison Chief Complaint: LEFT ANKLE PAIN S/P FALL History of Present Illness Gisel Odom is a 80 year old female who presented to the emergency room after a fall today in which she sustained an injury to her left leg. She was sitting down at the table when she stood up and she states she is not really sure what happened she just went down. She denies any prodromal symptoms. She was feeling okay. The only thing she has reported is some shortness of breath, particularly with exertion. No history of chest pain. No symptoms similar to what she had when she had to get her stents placed which included shoulder and neck pain. Denies lower extremity edema, cough productive or nonproductive. She does follow with a mill control operator in [place]. She states a stress test about a year ago was unremarkable. She has a pacemaker due to a history of atrial fibrillation. It was checked about a year ago. In the emergency room patient had plain films of the lumbar spine, femur, ankle, chest, knee as well as hips and pelvis. She also had CT, cervical spine, lumbar spine as well as abdomen and pelvis. Imaging studies revealed compression of the inferior endplate L2 which is new since last study but likely chronic, nondisplaced right inferior pubic rami fracture that was felt to be nonacute, nondisplaced comminuted fracture of the left proximal fibular diaphysis as well as an acute nondisplaced left distal fibular epiphyseal fracture also on the left. Case was discussed with Dr. Villeda. Splint was placed. She is chronically on Xarelto and was found to have acute kidney injury or chronic kidney disease that she is unaware of. She was also having borderline blood pressures. She lives at home with her normally. The last week of November he had major pelvic surgery. He can go stay with her daughter and son-in-law although there are limitations to their physical ability also which will necessitate assistance getting home so that she can safely get into the house and in the midst of the current weather. She is to be nonweightbearing and most assistive aids are are not conducive to safe utilization during the winter weather event. With her cardiac history she also would benefit from monitoring clinically to rule out other possibilities besides simple orthostasis/vasovagal event. She is agreeable with this plan. 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) ENMT: Denies: throat pain, dry mouth or nasal congestion Card: Reports: syncope and dyspnea on exertion; Denies: chest pain, palpitations, edema, swelling of feet/ankles, lightheadedness or orthopnea Resp: Reports: dyspnea; Denies: productive cough or non-productive cough GI: Denies: abdominal pain, nausea, vomiting, diarrhea or constipation : Denies: difficulty voiding (Normally but she is worried about it now) Musc: Reports: extremity pain Skin/Breast: Denies: rash or pruritus Neuro: Denies: headache(s), numbness in extremities, weakness in extremities or dizziness Psych: Denies: anxiety or depression Feliz/Lymph: Reports: easy bruising; Denies: easy bleeding Medications/Allergies Home Medications Medication Instructions Recorded Confirmed Last Taken Type aluminum-magnesium hydroxide 30 ml PO BID 12/27/20 12/27/20 Unknown History [Mylanta] amlodipine 10 mg PO DAILY 12/27/20 12/27/20 Unknown History benazepril 20 mg PO DAILY 12/27/20 12/27/20 Unknown History bumetanide 1 mg PO DAILY 12/27/20 12/27/20 Unknown History clopidogrel [Plavix] 75 mg PO DAILY 12/27/20 12/27/20 Unknown History guaifenesin [Mucinex] 1,200 mg PO BID 12/27/20 12/27/20 Unknown History montelukast 10 mg PO DAILY 12/27/20 12/27/20 Unknown History paroxetine HCl 20 mg PO DAILY 12/27/20 12/27/20 Unknown History pseudoephedrine-acetaminophen tab 12/27/20 Unknown History [Sinus] rivaroxaban [Xarelto] 20 mg PO DAILY 12/27/20 12/27/20 Unknown History simvastatin 20 mg PO DAILY 12/27/20 12/27/20 Unknown History Allergies Allergy/AdvReac Type Severity Reaction Status Date / Time Penicillins Allergy ALGY-Difficulty Verified 12/27/20 16:42 Breathing PFSH Acute PFSH: Medical History (Updated 12/28/20 @ 08:39 by Monica Ragland MD) Atrial fibrillation 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 CAD (coronary artery disease) Depression Dyslipidemia Hypertension Pacemaker Surgical History (Updated 12/28/20 @ 06:10 by Monica Ragland MD) History of coronary angioplasty with insertion of stent x 2 Mtn Home History of hip surgery History of hysterectomy History of knee surgery History of permanent cardiac pacemaker placement History of shoulder surgery Family History (Updated 12/28/20 @ 05:51 by Monica Ragland MD) Mother CAD (coronary artery disease) Father CAD (coronary artery disease) Social History (Updated 12/28/20 @ 05:51 by Monica Ragland MD) Smoking and tobacco status: former smoker Alcohol intake: never Substance/Drug Use: never Household members: spouse Marital status: Vitals/I&O/Wt Last Vital Signs Temp 97.9 F 12/27/20 21:34 Pulse 69 12/27/20 21:34 Resp 24 H 12/27/20 21:34 BP 98/62 12/27/20 21:34 Pulse Ox 100 12/27/20 21:34 12/27/20 12/27/20 12/27/20 06:59 14:59 22:59 Intake Total 1000 / 1000 Balance 1000 / 1000 Weight last 48 hrs Weight 90.718 kg Physical Exam Const: OTHER: Alert, oriented x3, cooperative HENMT: OTHER: Normocephalic atraumatic, moist mucus membranes Eye: OTHER: Pupils equally round and reactive to light Neck/C-Spine: OTHER: Supple Chest: OTHER: Pacemaker palpated left upper chest Resp: OTHER: Clear to auscultation bilaterally, breath sounds are decreased at both bases but no rales or wheezes noted Cardio: OTHER: Regular, no murmurs, no jugular venous distention GI: OTHER: Abdomen soft, nontender, no flank pain, positive bowel sounds : OTHER: Ruiz catheter noted Extremity: NARRATIVE EXTREMITY EXAM: Left lower extremity in splint, can move toes, capillary refill is brisk at the toes. Neuro: OTHER: Face symmetric, speech clear, moves all extremities Psych: OTHER: Normal affect Skin: OTHER: Dry skin Urinary Catheter Management^: Ruiz: Cath Placed During This Visit: yes Reason for Continuing Indwelling Catheter: Required Immobilization for Trauma or Surgery or Anesthesia Urinary Catheter Date of Insertion: 12/27/20 Urinary Catheter Time of Insertion: 18:03 Data : 12/28/20 04:55 12/28/20 04:55 Other Labs: Laboratory Last Values WBC 12.3 10^3/uL (4.0-10.0) H 12/27/20 16:40 RBC 3.42 10^6/uL (4.1-5.3) L 12/27/20 16:40 Hgb 10.0 g/dL (11.5-15.3) L 12/27/20 16:40 Hct 30.2 % (37.0-47.0) L 12/27/20 16:40 MCV 88.3 fL (81-99) 12/27/20 16:40 MCH 29.2 pg (28.0-34.0) 12/27/20 16:40 MCHC 33.1 g/dL (30.0-36.0) 12/27/20 16:40 RDW 12.2 % (12.1-15.1) 12/27/20 16:40 Plt Count 292 10^3/cmm (130-400) 12/27/20 16:40 MPV 10.3 fL (7.4-10.4) 12/27/20 16:40 Neut % (Auto) 81.3 % 12/27/20 16:40 Lymph % (Auto) 12.1 % 12/27/20 16:40 Wilkin % (Auto) 5.0 % 12/27/20 16:40 Eos % (Auto) 0.7 % 12/27/20 16:40 Baso % (Auto) 0.2 % 12/27/20 16:40 Neut # (Auto) 9.96 10^3/uL (1.8-7.7) H 12/27/20 16:40 Lymph # (Auto) 1.5 10^3/uL (0.8-4.8) 12/27/20 16:40 Wilkin # (Auto) 0.6 10^3/uL (0.2-0.9) 12/27/20 16:40 Eos # (Auto) 0.1 10^3/uL (0.0-0.8) 12/27/20 16:40 Baso # (Auto) 0.0 10^3/uL (0.0-0.1) 12/27/20 16:40 Nucleated RBC % (auto) 0 % 12/27/20 16:40 Nucleated RBCs # 0.0 /100WBC 12/27/20 16:40 PT 20.60 SECONDS (12.1-14.9) H 12/27/20 16:40 INR 1.70 (0.8-1.2) H 12/27/20 16:40 APTT 34.5 SECONDS (23.9-36.7) 12/27/20 16:40 Sodium 133 mmol/L (136-145) L 12/27/20 16:40 Potassium 3.8 mmol/L (3.5-5.1) 12/27/20 16:40 Chloride 95 mmol/L (98-107) L 12/27/20 16:40 Carbon Dioxide 22 mmol/L (22-29) 12/27/20 16:40 Anion Gap 19.8 (5-19) H 12/27/20 16:40 BUN 25 mg/dL (8-23) H 12/27/20 16:40 Creatinine 2.3 mg/dL (0.5-0.9) H 12/27/20 16:40 GFR Calculation Not Reportable 12/27/20 16:40 Glucose 119 mg/dL (65-115) H 12/27/20 16:40 Calculated Osmolality 282 mOsm/kg (285-295) L 12/27/20 16:40 Lactate 3.7 mmol/L (0.5-2.2) H 12/27/20 18:49 Calcium 9.4 mg/dL (8.5-10.5) 12/27/20 16:40 Total Bilirubin 0.4 mg/dL (0.15-1.2) 12/27/20 16:40 AST 15 U/L (0-32) 12/27/20 16:40 ALT 7 U/L (0-33) 12/27/20 16:40 Alkaline Phosphatase 127 IU/L (35-105) H 12/27/20 16:40 Troponin T Gen 5 ng/L 44 ng/L (0-10) H 12/27/20 16:40 NT-Pro-B Natriuret Pep 2173 pg/mL (0-450) H 12/27/20 16:40 Total Protein 6.3 g/dL (6.6-8.7) L 12/27/20 16:40 Albumin 3.8 g/dL (3.5-5.2) 12/27/20 16:40 Globulin 2.5 g/dL (1.3-4.6) 12/27/20 16:40 Urine Color Yellow (Yellow) 12/27/20 18:00 Urine Appearance Clear (CLEAR) 12/27/20 18:00 Urine pH 5 (5-7) 12/27/20 18:00 Ur Specific [place] 1.015 (1.005-1.030) 12/27/20 18:00 Urine Protein Neg (Negative) 12/27/20 18:00 Urine Glucose (UA) Norm (Normal) 12/27/20 18:00 Urine Ketones Negative (Negative) 12/27/20 18:00 Urine Blood Neg (Negative) 12/27/20 18:00 Urine Nitrate Negative (Negative) 12/27/20 18:00 Urine Bilirubin Neg (Negative) 12/27/20 18:00 Urine Urobilinogen Norm mg/dL (Negative) 12/27/20 18:00 Ur Leukocyte Esterase Negative (Negative) 12/27/20 18:00 Urine Opiates Screen Negative ng/mL (Negative) 12/27/20 18:00 Ur Barbiturates Screen Negative ng/mL (Negative) 12/27/20 18:00 Ur Phencyclidine Scrn Negative ng/mL (Negative) 12/27/20 18:00 Ur Amphetamines Screen Negative ng/mL (Negative) 12/27/20 18:00 U Benzodiazepines Scrn Negative ng/mL (Negative) 12/27/20 18:00 Urine Cocaine Screen Negative ng/mL (Negative) 12/27/20 18:00 U Marijuana (THC) Screen Negative ng/mL (Negative) 12/27/20 18:00 A&P Assessment and plan (1) Fall: At home, occurred with rising from a seated position Status: Acute Qualifiers: Encounter type: initial encounter Qualified Code(s): W19.XXXA - Unspecified fall, initial encounter (2) Syncope: Possible loss of consciousness but at the very least had presyncope. If there was any loss of consciousness it was quite brief. She does have a pacemaker. Has not had it checked for more than a year. Does not recall any other episodes like this. Denied chest pain. Did not have any focal neurological symptoms Status: Acute Qualifiers: Syncope type: unspecified Qualified Code(s): R55 - Syncope and collapse (3) Fibula fracture: Left leg, proximal and distal Status: Acute Qualifiers: Encounter type: initial encounter Fibula location: proximal Fracture morphology: unspecified fracture morphology Fracture type: closed Laterality: left Qualified Code(s): S82.832A - Other fracture of upper and lower end of left fibula, initial encounter for closed fracture (4) Chronic anticoagulation: Xarelto Status: Chronic (5) Pacemaker: Secondary to atrial fibrillation Status: Chronic (6) CAD (coronary artery disease): Has had 2 prior cardiac stents, chronically on Plavix Status: Chronic Qualifiers: Coronary Disease-Associated Artery/Lesion type: [place] artery [place] vs. transplanted heart: [place] heart Associated angina: without angina Qualified Code(s): I25.10 - Atherosclerotic heart disease of [place] coronary artery without angina pectoris (7) Hypertension: Reports that lately her blood pressures have been low Chronically on in, benazepril, Bumex Status: Chronic Qualifiers: Hypertension type: essential hypertension Qualified Code(s): I10 - Essential (primary) hypertension (8) Dyslipidemia: Started on after stent placement, chronically on statin Status: Chronic Additional A&P Information Chronic depression on Paxil Elevated BNP without a history of CHF known to her though is on chronic Bumex Observation admission Telemetry monitoring Pacemaker check Serial cardiac enzymes Recheck hemoglobin in the morning May have to consider holding Xarelto Dr. Villeda to see from an orthopedic standpoint IV fluids Request records from [place] regarding previous renal function, problem list and last cardiac studies Given no history of chronic kidney disease we will continue Ruiz catheter currently for close monitoring of urine output in the setting of acute kidney injury Check CK level I have held home JOSE ENRIQUE inhibitor, Bumex, amlodipine Continue home Plavix, Paxil Stool softeners Pain control with tramadol Patient is hesitant to utilize any strong narcotic medications due to responses to medications in the past PT evaluation to assist with education on how to transfer and be safe with fracture Supportive care otherwise Full code Attestations Medical Necessity Statement*: Anticipated stay currently less than 2 midnights in a patient who fell after rising from a seated position. She sustained fractures to both the distal and proximal fibula. This could be managed outpatient however she is on Xarelto, has some borderline blood pressures, a pacemaker, anemia and possibly acute kidney injury identified on labs. Had shortness of breath with exertion lately. Plans are as noted. Coding Level of Care Code Acute Collar Fuser for Chg Fwd Diagnoses Fall W19.XXXA Encounter type: initial encounter Syncope R55 Syncope type: unspecified Fibula fracture S82.832A Encounter type: initial encounter Fibula location: proximal Fracture morphology: unspecified fracture morphology Fracture type: closed Laterality: left Chronic anticoagulation Z79.01 Pacemaker Z95.0 CAD (coronary artery disease) I25.10 Coronary Disease-Associated Artery/Lesion type: [place] artery [place] vs. transplanted heart: [place] heart Associated angina: without angina Hypertension I10 Hypertension type: essential hypertension Dyslipidemia E78.5
[2020-12-27] MEDS: TRAMadol 50 mg Tablet PO (22:36)
[2020-12-28] VITALS (8 sets, daily range): BP systolic 90–102; BP diastolic 52–64; PULSE 69–74; RESP 16–20; TEMP 36.4–36.9; O2SAT 97–100
[2020-12-28] MEDS: TRAMadol 50 mg Tablet PO ×4 (05:10→20:09)
[2020-12-28 05:15] LABS: Basophils % 0.3 %; Eosinophils # 0.1 10^3/uL (0.0-0.8); Eosinophils % 1.3 %; Hematocrit 26.5 % (37.0-47.0); Hemoglobin 8.7 g/dL (11.5-15.3); Lymphocytes # 1.5 10^3/uL (0.8-4.8); Lymphocytes % 24.6 %; Mean Corpuscular HGB Conc 32.8 g/dL (30.0-36.0); Mean Corpuscular Hemoglobin 29.1 pg (28.0-34.0); Mean Corpuscular Volume 88.6 fL (81-99); Mean Platelet Volume 9.3 fL (7.4-10.4); Monocytes # 0.5 10^3/uL (0.2-0.9); Monocytes % 8.7 %; Neutrophils # 3.95 10^3/uL (1.8-7.7); Neutrophils % 64.8 %; Nucleated Red Blood Cells % 0 %; Platelet Count 264 10^3/cmm (130-400); Red Blood Count 2.99 10^6/uL (4.1-5.3); Red Cell Distribution Width 12.3 % (12.1-15.1); White Blood Count 6.1 10^3/uL (4.0-10.0)
[2020-12-28 05:49] LABS: Anion Gap 13.5 (5-19); Blood Urea Nitrogen 26 mg/dL (8-23); Carbon Dioxide 27 mmol/L (22-29); Chloride 102 mmol/L (98-107); Glucose 106 mg/dL (65-115); Magnesium 1.9 mg/dL (1.7-2.3); Osmolality Calculated 291 mOsm/kg (285-295); Phosphorus 3.9 mg/dL (2.5-4.5); Potassium 4.5 mmol/L (3.5-5.1); Sodium 138 mmol/L (136-145)
[2020-12-28] MEDS: sodium chloride 0.9% 1,000 ML 75 ML IV (06:35)
[2020-12-28 07:17] LABS: Creatine Phosphokinase 135 U/L (26-192)
[2020-12-28 07:29] LABS: Troponin(5th) Baseline 46 ng/L (0-10)
[2020-12-28 08:02] LABS: Lactate (Lactic Acid level) 0.8 mmol/L (0.5-2.2)
--- NOTE | 2020-12-28 08:03 | ECG_ITS ---
[facility] Test Date: 2020-12-28 Pat Name: Gisel Odom Department: Room: 259 Gender: Female Warehouse Technician: : 1940 Requested By: Monica Ragland Order Number: [id number] Cameron MD: Eli Haines M.D. Measurements Intervals [place] Rate: 69 P: IN: QRS: -67 QRSD: 210 T: 102 QT: 503 QTc: 543 Interpretive Statements ELECTRONIC VENTRICULAR PACEMAKER ABNORMAL RHYTHM ECG Compared to ECG 12/27/2020 17:02:33 Prolonged QT interval no longer present Electronically Signed On 12-28-2020 16:11:11 FABRICATION LEAD by Eli Haines M.D. [email or web address] wert [email or web address]/store/[id number]
[2020-12-28 08:04] LABS: Troponin 5 2HR 46.03 ng/L (0-10); Troponin 5 2HR Delta 0.03 ABS# (0-10)
[2020-12-28] MEDS: guaiFENesin 600 mg Tablet 1200 MG PO ×2 (09:49→17:22)
[2020-12-28] MEDS: sodium chloride 0.9% 250 ML IV (09:49)
[2020-12-28] MEDS: PARoxetine 20 mg Tablet PO (09:49)
[2020-12-28] MEDS: clopidogrel 75 mg Tablet PO (09:49)
[2020-12-28] MEDS: docusate sodium 100 mg Capsule PO ×2 (09:49→17:22)
[2020-12-28] MEDS: atorvastatin 40 mg Tablet 20 MG PO (09:50)
[2020-12-28] MEDS: montelukast sodium 10 mg Tablet PO (09:50)
--- NOTE | 2020-12-28 09:55 | PC.CHAP ---
Pastoral Care Encounter/Spiritual Assessment Type of Contact [] Declined floor surfacer visit [] Patient/Family/Request visit [] Outpatient visit [] Follow-up visit [] Physician referral [] Code/Alert [x] Routine visit [] Staff referral [] Actively dying [] Patient sleeping [] Family support [] [] Out of room [] Palliative care [] [] Receiving care in room [] Pre-surgical visit [] Trauma [] Long length of stay [] ICU visit [] Other: Relational/Emotional Strength [x] Patient feels connected with others/family/visitors/staff [] Distress [] Loneliness/isolation [] Abandonment Spirituality of Patient [] Person of Lizzy [] Attends Restoration of their Lizzy [] Believes in Prayer [] Reads Bible or Denominational materials [] There are Spiritual issues to be addressed Floating Operator Interventions [x] Prayer [] Active listening [] Non-anxious presence [] Spiritual/emotional support [] Crisis/trauma care [] Spiritual counseling [] Bereavement support [] Provided bereavement packet [] Provided Bible/devotional materials [] Provided toy/stuffed animal, coloring book to patient or family member [] Provided Communion [] Anointing/[place] [] Salvation [x] Completed spiritual assessment [] Other: Impact on Illness or Injury [] Angry [] Fearful [] Anxious [] Often cries [] Exhaustion [] Unable to work [] Unable to attend orthodox [] Unable to walk/stand [] Unable to read [] Unable to drive [] Unable to eat/drink [] Unable to sleep [] Unable to be with family [] Patient intubated [] Other: Summary Time spent with patient 10 min
--- NOTE | 2020-12-28 11:48 | PM.PN ---
Subjective Subjective: Interval history: No acute event overnight. Patient was complaining of pain in her left leg. Vitals and labs have been reviewed. Medications: Reviewed: Yes Vitals/I&O/Wt Last Vital Signs Temp 97.8 F 12/28/20 08:00 Pulse 70 12/28/20 08:00 Resp 17 12/28/20 08:00 BP 93/57 12/28/20 08:00 Pulse Ox 100 12/28/20 08:00 12/27/20 12/28/20 12/28/20 22:59 06:59 14:59 Intake Total 1000 / 1000 240 / 240 Output Total 300 / 300 Balance 1000 / 1000 -300 / 700 240 / 240 Weight last 48 hrs Weight 90.718 kg Physical Exam Extremity: OTHER: left lower extremity she has swelling about her left ankle with tenderness both medially and laterally. She holds her ankle flexed approximately 30 degrees and refuses to move her ankle at all due to pain. I cannot appreciate any instability of the talus. Urinary Catheter Management^: Ruiz: Cath Placed During This Visit: yes Reason for Continuing Indwelling Catheter: Required Immobilization for Trauma or Surgery or Anesthesia Urinary Catheter Date of Insertion: 12/27/20 Urinary Catheter Time of Insertion: 18:03 Data : 12/28/20 04:55 12/28/20 04:55 A&P Assessment and plan (1) Fall: At home, occurred with rising from a seated position Status: Acute Qualifiers: Encounter type: initial encounter Qualified Code(s): W19.XXXA - Unspecified fall, initial encounter (2) Syncope: Possible loss of consciousness but at the very least had presyncope. If there was any loss of consciousness it was quite brief. She does have a pacemaker. Has not had it checked for more than a year. Does not recall any other episodes like this. Denied chest pain. Did not have any focal neurological symptoms Status: Acute Qualifiers: Syncope type: unspecified Qualified Code(s): R55 - Syncope and collapse (3) Fibula fracture: Left leg, proximal and distal. Appreciate Ortho Rec. Status: Acute Qualifiers: Encounter type: initial encounter Fibula location: proximal Fracture morphology: unspecified fracture morphology Fracture type: closed Laterality: left Qualified Code(s): S82.832A - Other fracture of upper and lower end of left fibula, initial encounter for closed fracture (4) Chronic anticoagulation: Xarelto Status: Chronic (5) Pacemaker: Secondary to atrial fibrillation Status: Chronic (6) CAD (coronary artery disease): Has had 2 prior cardiac stents, chronically on Plavix Status: Chronic Qualifiers: Coronary Disease-Associated Artery/Lesion type: [place] artery [place] vs. transplanted heart: squaxin heart Associated angina: without angina Qualified Code(s): I25.10 - Atherosclerotic heart disease of squaxin coronary artery without angina pectoris (7) Hypertension: Reports that lately her blood pressures have been low Chronically on in, benazepril, Bumex Status: Chronic Qualifiers: Hypertension type: essential hypertension Qualified Code(s): I10 - Essential (primary) hypertension (8) Dyslipidemia: Started on after stent placement, chronically on statin Status: Chronic Additional A&P Information Chronic depression on Paxil Elevated BNP without a history of CHF known to her though is on chronic Bumex Telemetry monitoring Pacemaker check Serial cardiac enzymes: No significant delta Monitor CBC Continue holding Xarelto Appreciate Dr. Villeda rec IV fluids Request records from [facility] regarding previous renal function, problem list and last cardiac studies Given no history of chronic kidney disease we will continue Ruiz catheter currently for close monitoring of urine output in the setting of acute kidney injury Continue to hold home JOSE ENRIQUE inhibitor, Bumex, amlodipine Continue home Plavix, Paxil Stool softeners Pain control with tramadol Patient is hesitant to utilize any strong narcotic medications due to responses to medications in the past PT evaluation to assist with education on how to transfer and be safe with fracture Supportive care otherwise Full code Attestations Medical Necessity Statement*: Patient needs to be in hospital for the management of fractures to both the distal and proximal fibula,SHARATH v/s SHARATH ON CKD , anemia, Coding Level of Care Code Acute Efficiency Analyst for g Fwd Diagnoses Fall W19.XXXA Encounter type: initial encounter Syncope R55 Syncope type: unspecified Fibula fracture S82.832A Encounter type: initial encounter Fibula location: proximal Fracture morphology: unspecified fracture morphology Fracture type: closed Laterality: left Chronic anticoagulation Z79.01 Pacemaker Z95.0 CAD (coronary artery disease) I25.10 Coronary Disease-Associated Artery/Lesion type: squax[place] artery [place] vs. transplanted heart: squaxin heart Associated angina: without angina Hypertension I10 Hypertension type: essential hypertension Dyslipidemia E78.5
[2020-12-28 11:56] LABS: Troponin 5 6HR 46.85 ng/L (0-10); Troponin 5 6HR Delta 0.85 ng/L (0-12)
--- NOTE | 2020-12-28 12:03 | ECG_ITS ---
[facility] Test Date: 2020-12-28 Pat Name: Gisel Odom Department: Room: 259 Gender: Female Control Clerk Repairs: : 1940 Requested By: Monica Ragland Order Number: [id number] Cameron MD: Eli Haines M.D. Measurements Intervals [place] Rate: 71 P: [place]: QRS: -66 QRSD: 208 T: 114 QT: 494 QTc: 540 Interpretive Statements ELECTRONIC VENTRICULAR PACEMAKER ABNORMAL RHYTHM ECG Compared to ECG 12/28/2020 08:57:27 No significant changes Electronically Signed On 12-28-2020 16:12:00 RESIDENTIAL DIRECT SUPPORT PROFESSIONAL by Eli Haines M.D. [email or web address] [email or web address] specialty [email or web address] - [email or web address]/[id number]
--- NOTE | 2020-12-28 18:07 | PM.CONSULT ---
Providers/Reason For Consult Consulting Physican/Specialty*: Ras Villeda MD Reason for Consult*: Fracture left lower extremity Attending Physician: Abdi Conrad MD History of Present Illness History of Present Illness Gisel Odom is a 80 year old female presented to the emergency room after a fall with an injury to her left leg. She states she stood up from the table and the next thing she remembers is being down on the floor. Was seen in our emergency room where radiographs revealed a high fibular fracture. She describes pain in her left ankle and inability to bear weight. Meds/Allergies Home Medications and Allergies Home Medications Medication Instructions Recorded Confirmed Last Taken Type aluminum-magnesium hydroxide 30 ml PO BID PRN 12/27/20 12/28/20 Unknown History [Mylanta] amlodipine 10 mg PO DAILY 12/27/20 12/28/20 Unknown History benazepril 20 mg PO DAILY 12/27/20 12/28/20 Unknown History bumetanide 2 mg PO DAILY 12/27/20 12/28/20 Unknown History clopidogrel [Plavix] 75 mg PO DAILY 12/27/20 12/28/20 Unknown History guaifenesin [Mucinex] 1,200 mg PO BID 12/27/20 12/28/20 Unknown History montelukast 10 mg PO DAILY 12/27/20 12/28/20 Unknown History paroxetine HCl 20 mg PO DAILY 12/27/20 12/28/20 Unknown History rivaroxaban [Xarelto] 20 mg PO DAILY 12/27/20 12/28/20 Unknown History simvastatin 20 mg PO DAILY 12/27/20 12/28/20 Unknown History albuterol sulfate 2.5 mg INHALATION Q6H PRN 12/28/20 12/28/20 Unknown History Allergies Allergy/AdvReac Type Severity Reaction Status Date / Time Penicillins Allergy ALGY-Difficulty Verified 12/27/20 16:42 Breathing Current Medications Current Medications Generic Name Dose Route Start Last Admin Trade Name Freq PRN Reason Stop Dose Admin Atorvastatin Calcium 20 mg 12/28/20 09:00 12/28/20 09:50 Atorvastatin 40 Mg Tablet PO 20 mg DAILY PRESTON Administration Clopidogrel Bisulfate 75 mg 12/28/20 09:00 12/28/20 09:49 Clopidogrel 75 Mg Tablet PO 75 mg DAILY PRESTON Administration Docusate Sodium 100 mg 12/28/20 09:00 12/28/20 17:22 Docusate Sodium 100 Mg Capsule PO 100 mg BID PRESTON Administration Guaifenesin 1,200 mg 12/28/20 09:00 12/28/20 17:22 Guaifenesin 600 Mg Tablet PO 1,200 mg BID PRESTON Administration Hydromorphone HCl 2 mg 12/28/20 11:34 12/28/20 12:13 Hydromorphone 4 Mg Tablet PO 2 mg Q6H PRN Administration PAIN Montelukast Sodium 10 mg 12/28/20 09:00 12/28/20 09:50 Montelukast Sodium 10 Mg Tablet PO 10 mg DAILY PRESTON Administration Paroxetine HCl 20 mg 12/28/20 09:00 12/28/20 09:49 Paroxetine 20 Mg Tablet PO 20 mg DAILY PRESTON Administration Tramadol HCl 50 - 100 mg 12/27/20 21:34 12/28/20 14:29 Tramadol 50 Mg Tablet PO 100 mg Q4H PRN Administration moderate to sever pain PFSH Acute PFSH: Medical History (Updated 12/28/20 @ 18:14 by Ras Villeda MD) Atrial fibrillation 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 CAD (coronary artery disease) Depression Dyslipidemia Hypertension Pacemaker Surgical History (Updated 12/28/20 @ 06:10 by Monica Ragland MD) History of coronary angioplasty with insertion of stent x 2 Mtn Home History of hip surgery History of hysterectomy History of knee surgery History of permanent cardiac pacemaker placement History of shoulder surgery Family History (Updated 12/28/20 @ 05:51 by Monica Ragland MD) Mother CAD (coronary artery disease) Father CAD (coronary artery disease) Social History (Updated 12/28/20 @ 05:51 by Monica Ragland MD) Smoking and tobacco status: former smoker Alcohol intake: never Substance/Drug Use: never Household members: spouse Marital status: Vitals/I&O/Wt Last Vital Signs Temp 98.3 F 12/28/20 16:00 Pulse 70 12/28/20 16:00 Resp 18 12/28/20 16:00 BP 90/56 12/28/20 16:00 Pulse Ox 100 12/28/20 16:00 12/28/20 12/28/20 12/28/20 06:59 14:59 22:59 Intake Total 490 / 490 560 / 1050 Output Total 300 / 300 Balance -300 / 700 490 / 490 560 / 1050 Weight last 48 hrs Weight 200 lb Physical Exam Narrative: EXAM NARRATIVE: On examination the patient's left lower extremity she has swelling about her left ankle with tenderness both medially and laterally. She holds her ankle flexed approximately 30 degrees and refuses to move her ankle at all due to pain. I cannot appreciate any instability of the talus in the mortise with a laterally displacing force although she guards with quite a bit of pain. She can flex and extend her toes without any motor deficits. She has a palpable dorsalis pedis pulse. She has tenderness about her proximal fibular head. Urinary Catheter Management^: Ruiz: Cath Placed During This Visit: yes Reason for Continuing Indwelling Catheter: Required Immobilization for Trauma or Surgery or Anesthesia Urinary Catheter Date of Insertion: 12/27/20 Urinary Catheter Time of Insertion: 18:03 Data Imaging^: Xray Ortho: I personally reviewed and interpreted this imaging study as follows: (I reviewed 3 views of the left knee and 3 views left ankle dated 12/27/2020. ) My impression: The patient has a spiral fracture of the neck of the fibula without displacement. There appears to be a nondisplaced fracture across the tip of the lateral malleolus without displacement. There is some ossifications distal to the tip of the medial malleolus but the talus seems reasonably aligned in the mortise. There is no widening of the distal tib-fib clear space. A&P Assessment and plan (1) Bimalleolar fracture of left ankle: Status: Acute (2) Fracture of left fibula, shaft: This would appear to represent a stable lateral malleolar fracture with a small chip fracture off the medial malleolus. The talus is aligned in the mortise and I think this can be treated closed. I have recommended a postoperative boot as opposed to hard splint for better management of swelling and less pressure on her soft tissues. I will place the patient in a postoperative boot which she will need to leave in place until her pain improves. I would suggest no more than touchdown weightbearing. I will need to see her back in my clinic in 2 weeks with repeat radiographs of the ankle.. She will need penitentiary placement. Status: Acute Coding Level of Care Code Acute Top Inventory Control Executive for Chg Fwd Diagnoses Bimalleolar fracture of left ankle S82.842A Fracture of left fibula, shaft S82.402A
[2020-12-29] VITALS (11 sets, daily range): BP systolic 89–122; BP diastolic 40–65; PULSE 64–104; RESP 16–18; TEMP 36.3–36.6; O2SAT 86–100
[2020-12-29] MEDS: TRAMadol 50 mg Tablet PO (00:26)
--- NOTE | 2020-12-29 05:05 | ECG_ITS ---
[facility] Test Date: 2020-12-29 Pat Name: Gisel Odom Department: Room: 259 Gender: Female Salary Manager: : 1940 Requested By: Larisa Nolan Order Number: [id number] Cameron MD: Kayla Irene M.D. Measurements Intervals [place] Rate: 69 P: [place]: QRS: -64 QRSD: 219 T: 115 QT: 508 QTc: 548 Interpretive Statements ELECTRONIC VENTRICULAR PACEMAKER ABNORMAL RHYTHM ECG Compared to ECG 12/28/2020 13:31:03 No significant changes Electronically Signed On 12-29-2020 7:58:08 MUSIC TEACHER by Kayla Irene M.D. [id number]
[2020-12-29 05:29] LABS: Basophils % 0.4 %; Eosinophils # 0.1 10^3/uL (0.0-0.8); Eosinophils % 1.4 %; Hematocrit 27.6 % (37.0-47.0); Hemoglobin 8.7 g/dL (11.5-15.3); Lymphocytes # 2.8 10^3/uL (0.8-4.8); Lymphocytes % 27.6 %; Mean Corpuscular HGB Conc 31.5 g/dL (30.0-36.0); Mean Corpuscular Hemoglobin 29.3 pg (28.0-34.0); Mean Corpuscular Volume 92.9 fL (81-99); Mean Platelet Volume 9.5 fL (7.4-10.4); Monocytes # 0.9 10^3/uL (0.2-0.9); Monocytes % 8.8 %; Neutrophils # 6.26 10^3/uL (1.8-7.7); Neutrophils % 61.3 %; Nucleated Red Blood Cells % 0 %; Platelet Count 242 10^3/cmm (130-400); Red Blood Count 2.97 10^6/uL (4.1-5.3); Red Cell Distribution Width 12.3 % (12.1-15.1); White Blood Count 10.2 10^3/uL (4.0-10.0)
[2020-12-29 05:42] LABS: ABG PCO2 21.3 mmHg (35-45); Arterial Blood Gas Hematocrit 25.7 % (37-47); Base Excess ABG -0.3 mmol/L (-2.0-2.0); Blood Gas Sample Site Brachial, right; Blood Gas Sample Type Arterial; Carboxyhemoglobin 0.5 %THgb (0.4-20.1); HCO3 ABG 20.6 mmol/L (22-26); HGB O2 Sat 98.6 % (95-100); Ionized Calcium Level - ABG 1.1 mmol/L (1.1-1.4); Methemoglobin 1.1 % (0.4-1.5); Oxygen Device NC; Oxygen Saturation ABG > 100.0; Total Hemoglobin 8.4 g/dL (12-16)
--- NOTE | 2020-12-29 05:46 | XR_ITS ---
WS: [id number] PORTABLE CHEST HISTORY: status change COMPARISON: 12/27/2020 Single lead LEFT subclavian cardiac pacer. Slight elevation of the RIGHT hemidiaphragm. No pneumonia. Normal vasculature. No pleural effusion or pneumothorax. Cardiac size: Normal. Mediastinum/Aorta: Mild atherosclerosis aorta. Reverse shoulder replacement on the LEFT. XR/XR chest 1V portable [id number] IMPRESSION: Stable chest. No acute cardiopulmonary disease identified.
[2020-12-29 05:48] LABS: Alanine Aminotransferase 7 U/L (0-33); Alkaline Phosphatase 107 IU/L (35-105); Aspartate Amino Transferase 19 U/L (0-32); Blood Urea Nitrogen 27 mg/dL (8-23); Carbon Dioxide 21 mmol/L (22-29); Chloride 100 mmol/L (98-107); Globulin 2.7 g/dL (1.3-4.6); Glucose 87 mg/dL (65-115); Osmolality Calculated 280 mOsm/kg (285-295); Sodium 133 mmol/L (136-145); Total Bilirubin 0.5 mg/dL (0.15-1.2); Total Protein 5.7 g/dL (6.6-8.7)
[2020-12-29] MEDS: morphine 4 mg/mL SDV 1 mL 2 MG IVP (05:56)
[2020-12-29] MEDS: sodium chloride 0.9% 1,000 ML 999 ML IV (06:05)
[2020-12-29] MEDS: sodium chloride 0.9% 500 ML 999 ML IV (06:31)
--- NOTE | 2020-12-29 06:48 | PM.EVENT ---
Event Note Event Note: I was called to assess the patient for hypotension Blood pressure 65/35 mmHg Patient was awake alert she was not complaining of any active chest pain, she was sitting in a chair when blood pressure was taken, she was extremely pale, no neurological deficits were noted however patient complained of tunnel vision which improved after she laid flat in the bed On my assessment Patient complexion was pale Skin was cold and clammy Pale fingers and toes S1, S2 variable with no obvious loud murmur Abdomen soft distended bowel sound present Bilateral breath sounds without adventitious rhonchi or crackles, patient was hyperventilating She was on 10 L nasal cannula saturating well Assessment and plan Hypotension with cold and clammy extremities, pale complexion, Differential diagnosis: Cardiogenic shock versus hypovolemia Stat H&H revealed stable hemoglobin 8.7 No obvious hematoma or active petechia of skin Stat portable chest x-ray did not reveal tension pneumothorax or any signs of pneumonia Stat EKG revealed paced rhythm Pacemaker interrogation requested Stat ABG revealed hyperventilating respiratory alkalosis Patient's blood pressure improved after 1 L normal saline bolus to 110/60mmhg, her complexion and skin color improved as well I did bedside Doppler which revealed 1+ dorsalis pedis pulses bilaterally and 2+ posterior tibial pulses bilaterally, area was demarcated In total she had about 400 urine output overnight Her mentation was normal she was awake alert oriented x3 able to make her needs known Her blood pressure was getting softer after getting first liter of normal saline I have requested nurse to transfer her to ICU in case she would require vasopressors I do not have her previous echo to evaluate her ejection fraction, will request Patient is complaining of lower back pain for which she has received 2 mg IV morphine Clonidine and antihypertensive agents held CODE STATUS discussed with the patient: She is full code and would like to discuss further with her niece
[2020-12-29 07:33] LABS: Glucose Point of Care 102 mg/dL (70-110)
[2020-12-29 08:02] LABS: D Dimer 3.67 ug/mIFEU (0-0.59)
[2020-12-29 08:03] LABS: Troponin T (5th) Once 47 ng/L (0-10)
--- NOTE | 2020-12-29 08:17 | PC.NURSE ---
AM NOTE 0606 LATE ENTRY REPORT GIVEN TO THIS NURSE PER PHILOMENA RN AND SHARON GUTIERREZ - PT CURRENTLY IN [facility] WITH MANUAL PRESSURE OF IN RIGHT ARM 92/42 AFTER FLUID BOLUS - MULTIPLE STAFF AT SIDE - PT ABLE TO COMMUNICATE WITH THIS NURSE - STATES JUST DONT LEAVE ME 0XYGEN 3L WITH OXY MASK SATES 97-99 HEART RATE 70'S - WILL MONITOR
--- NOTE | 2020-12-29 08:27 | PC.NURSE ---
Addendum entered by Vivian Yung RN 12/29/20 14:38: NOTED LEFT FOOT NOTED TO ROTATE OUTWARD Original Note: AM REPORT DR DOWNS AT 0800 - PT REMAINS IN [place] - AGITATION NOTED - MANUAL BP IN RIGHT ARM OF 82/46 ONCE TAKEN OUT OF [place] PER DR DOWNS ORDER - BP OF 110/58 IN LEFT ARM WITH AUTOMATIC CUFF - ORDERS PER DR DOWNS TO REMOVE OXYMASK AND PLACE ON NC AT 2 - DONE PER THIS NURSE - DR DOWNS STATES SEE SHE IS FINE - 0825 - PT BECOMES INCREASING SHORT OF BREATH ON NC -SATS AT 70% - RETURNED PT TO OXYMASK AT 3L - [facility]ISE [facility]TE[facility] ICU AT SIDE - LEFT BLOOD PRESSURE WITH AUTOMATIC CUFF AT 107/65 - MAP OF 62 ON RIGHT ARM PER TC - PT CALMING WITH OXY MASK IN PLACE - 02 AT 100 - PULSE 70 - TELE SHOWS PACED RHYTHM IN 70'S - 0835 - PT CALMING - BREATHING EASIER STATES I FEEL BETTER - CURRENT MANUAL BP IN RIGHT ARM PER DENISE MONTEZ 105/55 - ISMAEL HEEL BOOTS PLACED ON PT DUE TO INCREASED RIGHT HEEL PAIN
--- NOTE | 2020-12-29 08:46 | PC.NURSE ---
D DIMER D DIMER OF 3.[address] DOWNS - THIS NURSE CALLED DR DOWNS TO VERIFY ORDERS TO PROCEED WITH CTA OR NOT - DR DOWNS DOES NOT GIVE ORDERS FOR CTA AT PRESENT TIME
--- NOTE | 2020-12-29 08:57 | PC.NURSE ---
AM NOTE CHANGED FROM OXYMASK TO NASAL CANNULA AT 2L - PT CALM WITH VSS AT PRESENT TIME
--- NOTE | 2020-12-29 09:37 | PC.NURSE ---
AM NOTE 0930 RESTING WITH EYES CLOSED RESP EVEN AND UNLABORED REMAINS ON AT 2LNC - SATS AT 96% HEART RATE CURRENTLY AT 71 - DENIES COMPLAINS AT PRESENT TIME
[2020-12-29] MEDS: atorvastatin 40 mg Tablet 20 MG PO (09:59)
[2020-12-29] MEDS: PARoxetine 20 mg Tablet PO (10:00)
[2020-12-29] MEDS: montelukast sodium 10 mg Tablet PO (10:00)
[2020-12-29] MEDS: guaiFENesin 600 mg Tablet 1200 MG PO ×2 (10:00→17:04)
[2020-12-29] MEDS: docusate sodium 100 mg Capsule PO ×2 (10:00→17:04)
[2020-12-29] MEDS: clopidogrel 75 mg Tablet PO (10:01)
--- NOTE | 2020-12-29 10:04 | PC.NURSE ---
DR DOWNS BLOOD PRESSURE WITH AUTOMATIC CUFF AT 74/44 WITH MAP 54 - REPORTED TO DR DOWNS - MANUAL BP IN RIGHT ARM 80/40 - PT ASYMPTOMATIC - DR AT SIDE
[2020-12-29] MEDS: apixaban 5 mg Tablet PO ×2 (10:07→21:11)
[2020-12-29] MEDS: sodium chloride 0.9% 1,000 ML 125 ML IV ×2 (10:18→17:03)
--- NOTE | 2020-12-29 10:45 | PC.NURSE ---
BLOOD PRESSURE BLOOD PRESSURE WITH AUTOMATIC CUFF TO LEFT ARM 83/50 WITH MAP OF 61 - IVF UP WITH NS AT 125 - PT ASYMPTOMATIC - 02 SATS AT 90% ON 2L NC - INCREASED TO 3L NC PT UP TO 93-95
--- NOTE | 2020-12-29 10:49 | PC.CHAP ---
Pastoral Care Encounter/Spiritual Assessment Type of Contact [] Declined draw bench operator helper visit [] Patient/Family/Request visit [] Outpatient visit [] Follow-up visit [] Physician referral [] Code/Alert [x] Routine visit [] Staff referral [] Actively dying [x] Patient sleeping [] Family support [] [] Out of room [] Palliative care [] [] Receiving care in room [] Pre-surgical visit [] Trauma [] Long length of stay [] ICU visit [] Other: Relational/Emotional Strength [] Patient feels connected with others/family/visitors/staff [] Distress [] Loneliness/isolation [] Abandonment Spirituality of Patient [] Person of Lizzy [] Attends Oriental Orthodox of their Lizzy [] Believes in Prayer [] Reads Bible or Faith materials [] There are Spiritual issues to be addressed Reconcilement Clerk Interventions [] Prayer [] Active listening [] Non-anxious presence [] Spiritual/emotional support [] Crisis/trauma care [] Spiritual counseling [] Bereavement support [] Provided bereavement packet [] Provided Bible/devotional materials [] Provided toy/stuffed animal, coloring book to patient or family member [] Provided Communion [] Anointing/[place] [] Salvation [] Completed spiritual assessment [] Other: Impact on Illness or Injury [] Angry [] Fearful [] Anxious [] Often cries [] Exhaustion [] Unable to work [] Unable to attend yazidi [] Unable to walk/stand [] Unable to read [] Unable to drive [] Unable to eat/drink [] Unable to sleep [] Unable to be with family [] Patient intubated [] Other: Summary Time spent with patient
--- NOTE | 2020-12-29 10:52 | PC.CHAP ---
Pastoral Care Encounter/Spiritual Assessment Type of Contact [] Declined gizzard puller visit [] Patient/Family/Request visit [] Outpatient visit [] Follow-up visit [] Physician referral [] Code/Alert [x] Routine visit [] Staff referral [] Actively dying [x] Patient sleeping [] Family support [] [] Out of room [] Palliative care [] [] Receiving care in room [] Pre-surgical visit [] Trauma [] Long length of stay [] ICU visit [] Other: Relational/Emotional Strength [] Patient feels connected with others/family/visitors/staff [] Distress [] Loneliness/isolation [] Abandonment Spirituality of Patient [] Person of Lizzy [] Attends Congregation of their Lizzy [] Believes in Prayer [] Reads Bible or Muslim materials [] There are Spiritual issues to be addressed Change Person Interventions [] Prayer [] Active listening [] Non-anxious presence [] Spiritual/emotional support [] Crisis/trauma care [] Spiritual counseling [] Bereavement support [] Provided bereavement packet [] Provided Bible/devotional materials [] Provided toy/stuffed animal, coloring book to patient or family member [] Provided Communion [] Anointing/[place] [] Salvation [] Completed spiritual assessment [] Other: Impact on Illness or Injury [] Angry [] Fearful [] Anxious [] Often cries [] Exhaustion [] Unable to work [] Unable to attend scientology [] Unable to walk/stand [] Unable to read [] Unable to drive [] Unable to eat/drink [] Unable to sleep [] Unable to be with family [] Patient intubated [] Other: Summary Time spent with patient
--- NOTE | 2020-12-29 11:06 | PM.PN ---
Subjective Subjective: Interval history: Patient was seen and examined this morning.She deny any chest pain, sob,nausea, vomiting,abdominal pain,any bleeding, any urinary complain. She was hypotensive overnight had to given I.V fluids bolus to which she responded well. She has remained afebrile. Her other vitals and labs have been reviewed. Medications: Reviewed: Yes Vitals/I&O/Wt Last Vital Signs Temp 97.8 F 12/29/20 08:00 Pulse 68 12/29/20 08:32 Resp 17 12/29/20 08:00 BP 105/40 12/29/20 08:00 Pulse Ox 100 12/29/20 08:32 12/28/20 12/29/20 12/29/20 22:59 06:59 14:59 Intake Total 560 / 1050 1980 / 3030 150 / 150 Output Total 650 / 650 525 / 1175 Balance -90 / 400 1455 / 1855 150 / 150 Weight last 48 hrs Weight 90.718 kg Physical Exam Extremity: OTHER: left lower extremity she has swelling about her left ankle with tenderness both medially and laterally. She holds her ankle flexed approximately 30 degrees and refuses to move her ankle at all due to pain. I cannot appreciate any instability of the talus. Urinary Catheter Management^: Ruiz: Cath Placed During This Visit: yes Reason for Continuing Indwelling Catheter: Required Immobilization for Trauma or Surgery or Anesthesia Urinary Catheter Date of Insertion: 12/27/20 Urinary Catheter Time of Insertion: 18:03 Data : 12/29/20 05:17 12/29/20 05:17 A&P Assessment and plan (1) Fall: At home, occurred with rising from a seated position Status: Acute Qualifiers: Encounter type: initial encounter Qualified Code(s): W19.XXXA - Unspecified fall, initial encounter (2) Syncope: Possible loss of consciousness but at the very least had presyncope. If there was any loss of consciousness it was quite brief. She does have a pacemaker. Has not had it checked for more than a year. Does not recall any other episodes like this. Denied chest pain. Did not have any focal neurological symptoms Status: Acute Qualifiers: Syncope type: unspecified Qualified Code(s): R55 - Syncope and collapse (3) Fibula fracture: Left leg, proximal and distal. Appreciate Ortho Rec. Status: Acute Qualifiers: Encounter type: initial encounter Fibula location: proximal Fracture morphology: unspecified fracture morphology Fracture type: closed Laterality: left Qualified Code(s): S82.832A - Other fracture of upper and lower end of left fibula, initial encounter for closed fracture (4) Chronic anticoagulation: Xarelto Status: Chronic (5) Pacemaker: Secondary to atrial fibrillation Status: Chronic (6) CAD (coronary artery disease): Has had 2 prior cardiac stents, chronically on Plavix Status: Chronic Qualifiers: Coronary Disease-Associated Artery/Lesion type: [place] artery [place] vs. transplanted heart: [place] heart Associated angina: without angina Qualified Code(s): I25.10 - Atherosclerotic heart disease of [place] coronary artery without angina pectoris (7) Hypertension: Reports that lately her blood pressures have been low Chronically on in, benazepril, Bumex Status: Chronic Qualifiers: Hypertension type: essential hypertension Qualified Code(s): I10 - Essential (primary) hypertension (8) Dyslipidemia: Started on after stent placement, chronically on statin Status: Chronic Additional A&P Information Chronic depression on Paxil Elevated BNP without a history of CHF known to her though is on chronic Bumex Telemetry monitoring Pacemaker check:Done :No issues with pacemaker functioning. Serial cardiac enzymes: No significant delta Monitor CBC Started on Eliqus 5 MG Q12 H Daily.Will switch to Xarelto on discharge. Started on Midodrine for Hypotension. Will continue to monitor 2D Echo : Appreciate Dr. Villeda rec Request records from [place] regarding previous renal function, problem list and last cardiac studies Given no history of chronic kidney disease we will continue Ruiz catheter currently for close monitoring of urine output in the setting of acute kidney injury Continue to hold home JOSE ENRIQUE inhibitor, Bumex, amlodipine Continue home Plavix, Paxil Stool softeners Pain control with tramadol Patient is hesitant to utilize any strong narcotic medications due to responses to medications in the past PT evaluation to assist with education on how to transfer and be safe with fracture Supportive care otherwise Full code Attestations Medical Necessity Statement*: Patient needs to be in hospital for the management of fractures to both the distal and proximal fibula,SHARATH v/s SHARATH ON CKD , anemia,Hypotension. Coding Level of Care Code Acute Automatic Folder Seamer for Chg Fwd Diagnoses Fall W19.XXXA Encounter type: initial encounter Syncope R55 Syncope type: unspecified Fibula fracture S82.832A Encounter type: initial encounter Fibula location: proximal Fracture morphology: unspecified fracture morphology Fracture type: closed Laterality: left Chronic anticoagulation Z79.01 Pacemaker Z95.0 CAD (coronary artery disease) I25.10 Coronary Disease-Associated Artery/Lesion type: [place] artery [place] vs. transplanted heart: [place] heart Associated angina: without angina Hypertension I10 Hypertension type: essential hypertension Dyslipidemia E78.5
--- NOTE | 2020-12-29 11:11 | PC.NURSE ---
I reported to nurse that her blood pressure was 89/54
--- NOTE | 2020-12-29 11:23 | PC.NURSE ---
Addendum entered by Vivian Yung RN 12/29/20 11:27: CURRENT SAT ACCORDING TO FINGER PROBE IS 86% - NOTIFIED DR OF PAST BP WELL INCREASE IN OXYGEN NEED DUE TO SAT DECREASING - Original Note: DR YARELI DOWNS AT SIDE - REMOVED FOREHEAD PULSE OX - INSTRUCTED TO LEAVE OFF - THIS NURSE NOTIFIED DR THAT FINGER PULSE OX WILL NOT DETECT ON PATIENT DUE TO HAND COLD - - WILL REPLACE BP 96/59
[2020-12-29] MEDS: midodrine 5 mg TABLET PO ×3 (11:26→21:10)
--- NOTE | 2020-12-29 12:14 | PC.NURSE ---
BLOOD PRESSURE AUTOMATIC CUFF TO LEFT ARM SHOWS BP 109/54 WITH MAP 72 - 02 TITRATED DOWN TO 2L NC - PT SITTING UP EATING LUNCH TRAY DENYING CURRENT NEEDS
--- NOTE | 2020-12-29 13:15 | PC.NURSE ---
BLOOD PRESSURE NOTED AUTOMATIC CUFF TO LEFT ARM TO BE 95/46 WITH MAP 62 - 02 SAT AT 96% ON 2LNC - PULSE 71 - PT DENIES NEEDS OR PAIN AT PRESENT TIME - IV CONTINUES TO INFUSE WITHOUT DIFFICULTY - G[place] PATENT TO YELLOW URINE
--- NOTE | 2020-12-29 14:21 | PC.NURSE ---
BLOOD PRESSURE BLOOD PRESSURE TO LEFT ARM WITH AUTOMATIC CUFF AT 90/54 MAP 64 - 02 AT 2LNC 100% - HEART RATE 70 - PT AWAKENS EASILY TO VERBAL STIMULI - STATES IM JUST TIRED RESP EVEN AND UNLABORED - DENIES PAIN - IV CONTINUES TO LEFT FOREARM AT 125 - G[place] REMAINS PATENT WITH YELLOW URINE - ISMAEL HEEL BOOTS IN PLACE
--- NOTE | 2020-12-29 16:15 | PC.NURSE ---
BLOOD PRESSURE AUTOMATIC CUFF TO LEFT ARM WITH PRESSURE 108/61 - 02 INCREASED TO 3LNC DUE TO SATS AT 87-88% - AT 92% ON 3L - PULSE IN 70'S DENIES NEEDS AT PRESENT TIME
--- NOTE | 2020-12-29 17:40 | PC.NURSE ---
BLOOD PRESSURE CURRENT BP ON LEFT ARM AUTOMATIC CUFF 106/68 02 UP TO 4L NC SATS 92% - PULSE 75- IV X2 LEFT ARM PATENT - GARLAND INTACT - PT PREVIOUSLY REPOSITIONED - DENIES NEEDS
--- NOTE | 2020-12-29 18:05 | PC.NURSE ---
O2 SATS/DR DOWNS NOTED PT CONTINOUS PULSE OX ALARMING LOW 02 - SATS CONSISTENTLY 80 S - CHANGED PT TO OXYMASK 4L - SATS UP TO 88-90% BP 106/80 PUSLSE 74 - PT ASYMPTOMATIC OTHERWISE - DR DOWNS NOTIFIED - ORDERS REC'D FOR ABG - HALIE, RT NOTIFIED WILL CONTINUE TO MONITOR
[2020-12-29 18:26] LABS: ABG PCO2 39.8 mmHg (35-45); ABG PH Result 7.38 (7.35-7.45); Alveolar-Arterial Oxygen Gradi 3.4 mmHg (5-10); Arterial Blood Gas Hematocrit 28.2 % (37-47); Base Excess ABG -1.4 mmol/L (-2.0-2.0); Blood Gas Operator Identificat glc; Blood Gas Sample Site Brachial, right; Blood Gas Sample Type Arterial; Carboxyhemoglobin 0.4 %THgb (0.4-20.1); HCO3 ABG 23.6 mmol/L (22-26); HGB O2 Sat 98.5 % (95-100); Ionized Calcium Level - ABG 1.2 mmol/L (1.1-1.4); Methemoglobin 0.9 % (0.4-1.5); Oxygen Device OXY MASK; Oxygen Saturation ABG 99.7; Potassium Level - ABG 4.2 mmol/L (3.5-5.0); Total Hemoglobin 9.2 g/dL (12-16)
[2020-12-29 21:18] LABS: Glucose Point of Care 78 mg/dL (70-110)
[2020-12-29 21:47] LABS: Glucose Point of Care 115 mg/dL (70-110)
[2020-12-30] VITALS (8 sets, daily range): BP systolic 103–118; BP diastolic 63–70; PULSE 69–84; RESP 17–18; TEMP 36.5–37.1; O2SAT 92–100
[2020-12-30] MEDS: sodium chloride 0.9% 1,000 ML 125 ML IV ×2 (00:49→09:32)
--- NOTE | 2020-12-30 02:52 | USCV_ITS ---
Gisel Odom Age: 80 Gender: F : 1940 Exam Date: 12/30/2020 06:46 Ordering Phys: Larisa Nolan MD Technologist: Ceci Garza Exam Location: [facility] Indication: dvt HISTORY: DVT. PROCEDURES: Venous duplex imaging was performed in bilateral lower extremities. The following venous structures were evaluated: common femoral vein, profunda vein, proximal portion of the greater saphenous vein, superficial femoral vein, and the popliteal vein. In addition, the posterior tibial and peroneal trunk were evaluated. Serial compression, augmentation maneuvers, and spectral Doppler flow evaluation were performed. FINDINGS: Normal 2-D Doppler and augmentation and compressibility throughout the lower extremity venous structures. Additional imaging through the proximal calf veins also reveals no thrombus. Limited evaluation of the greater saphenous vein is patent with no thrombus. CONCLUSIONS No DVT bilateral lower extremities. Dr. Kamala Gan DO (Electronically Signed) Final Date: 30 December 2020 08:29 S
--- NOTE | 2020-12-30 05:00 | USCV_ITS ---
Odom, Gisel Age: 80 Gender: F : 1940 Exam Date: 12/30/2020 06:32 Ordering Phys: Abdi Conrad MD Technologist: Ceci Garza [place]am [place] [facility] [place] Indication: worsening sob BP: 107 / 65 HR: 93 Rhythm: Sinus Technical Quality: Adequate MEASUREMENTS (Male / Female) Normal Values 2D ECHO LV Diastolic Diameter PLAX 4.2 cm 4.2 - 5.9 / 3.9 - 5.3 cm LV Systolic Diameter PLAX 2.7 cm LV Chamber Size 3.0 cm IVS Diastolic Thickness 1.6 cm 0.6 - 1.0 / 0.6 - 0.9 cm IVS Systolic Thickness 1.8 cm LVPW Diastolic Thickness 2.7 cm 0.6 - 1.0 / 0.6 - 0.9 cm LVPW Systolic Thickness 3.1 cm RV Chamber Size 2.7 cm LVOT Diameter 2.0 cm LV Ejection Fraction 2D Teich 66.1 % LV Ejection Fraction MOD 2C 61.1 % LV Ejection Fraction 2C AL 59.7 % LA Diameter 4.4 cm LA Width 4.7 cm LA Height 5.0 cm RA Width 4.3 cm RA Height 4.1 cm Aorta at Sinotubular Diameter 2.9 cm M-MODE LV Diastolic Diameter MM 5.2 cm 4.2 - 5.9 / 3.9 - 5.3 cm LV Systolic Diameter MM 4.1 cm LV Ejection Fraction MM Teich 42.8 % IVS Diastolic Thickness MM 0.9 cm 0.6 - 1.0 / 0.6 - 0.9 cm IVS Systolic Thickness MM 1.1 cm LVPW Diastolic Thickness MM 1.4 cm 0.6 - 1.0 / 0.6 - 0.9 cm LVPW Systolic Thickness MM 1.4 cm Aortic Annulus Diameter 3.7 cm LA Ao Ratio MM 1.2 MV E Point Septal Separation 1.6 cm DOPPLER AV Peak Velocity 175.0 cm/s LVOT Peak Velocity 137.0 cm/s AV Area Cont Eq vti 2.4 cm squared AV Area Cont Eq pk 2.6 cm squared MV Area PHT 2.8 cm squared Mitral E to A Ratio 2.0 MV E' Velocity 90.0 cm/s Mitral E to MV E' Ratio 29.5 Mitral E to LV E' Lateral Ratio 31.1 Mitral E to LV E' Septal Ratio 28.1 TR Peak Velocity 283.5 cm/s TR Peak Gradient 32.1 mmHg TV Peak E Velocity 96.0 cm/s Right Atrial Pressure 3.0 mmHg Pulmonary Artery Systolic Pressu 35.1 mmHg PV Peak Velocity 104.0 cm/s RV Acceleration Time 0.1 s RV Ejection Time 0.3 s RV AcT/ET 0.2 FINDINGS Left Ventricle Normal left ventricular cavity size. Moderately decreased left ventricular systolic function. Global left ventricular hypokinesis. Left ventricular ejection fraction is estimated at 42 %. Grade III/IV diastolic dysfunction (restrictive filling pattern), severely elevated filling pressures. Right Ventricle The right ventricle is normal in size and function. Right Atrium The right atrium is normal in size. Left Atrium Moderately increased left atrial size. Mitral Valve Severely thickened mitral valve. Severe mitral annular calcification. No mitral valve stenosis. No mitral valve regurgitation. Aortic Valve Moderate aortic valve calcification. Mild aortic valve stenosis, mean gradient 5.5 mmHg, LEDY 2.4 cm squared. Mild aortic valve regurgitation. Tricuspid Valve Moderate tricuspid valve regurgitation. Pulmonic Valve Mild pulmonary valve regurgitation. Pericardium Normal pericardium without effusion. Aorta Normal ascending aorta dimension. CONCLUSIONS 1-Normal left ventricular cavity size. Moderately decreased left ventricular systolic function. Global left ventricular hypokinesis. Left ventricular ejection fraction is estimated at 42 %. Grade III/IV diastolic dysfunction (restrictive filling pattern), severely elevated filling pressures. 2-Severely thickened mitral valve. Severe mitral annular calcification. No mitral valve stenosis. No mitral valve regurgitation. 3-Moderate aortic valve calcification. Mild aortic valve stenosis, mean gradient 5.5 mmHg, LEDY 2.4 cm squared. Mild aortic valve regurgitation. 4-Moderate tricuspid valve regurgitation. 5-Mild pulmonary valve regurgitation. 6-There is no pericardial effusion. 7-Right atrial pressure is around 5 mm of mercury. 8-There are no prior echocardiogram studies to compare. Larisa Denis MD (Electronically Signed) Final Date: 30 December 2020 17:28 S
[2020-12-30 06:10] LABS: Basophils % 0.4 %; Eosinophils # 0.1 10^3/uL (0.0-0.8); Eosinophils % 1.8 %; Hematocrit 24.2 % (37.0-47.0); Hemoglobin 7.8 g/dL (11.5-15.3); Mean Corpuscular HGB Conc 32.2 g/dL (30.0-36.0); Mean Corpuscular Hemoglobin 28.9 pg (28.0-34.0); Mean Corpuscular Volume 89.6 fL (81-99); Mean Platelet Volume 9.7 fL (7.4-10.4); Monocytes # 0.6 10^3/uL (0.2-0.9); Monocytes % 8.3 %; Neutrophils # 5.07 10^3/uL (1.8-7.7); Neutrophils % 74.1 %; Nucleated Red Blood Cells % 0 %; Platelet Count 223 10^3/cmm (130-400); Red Cell Distribution Width 12.4 % (12.1-15.1); White Blood Count 6.9 10^3/uL (4.0-10.0)
[2020-12-30 06:32] LABS: Alanine Aminotransferase 6 U/L (0-33); Albumin Level 2.9 g/dL (3.5-5.2); Alkaline Phosphatase 101 IU/L (35-105); Anion Gap 11.1 (5-19); Aspartate Amino Transferase 18 U/L (0-32); Blood Urea Nitrogen 24 mg/dL (8-23); Calcium 8.3 mg/dL (8.5-10.5); Carbon Dioxide 22 mmol/L (22-29); Chloride 104 mmol/L (98-107); Globulin 2.6 g/dL (1.3-4.6); Glucose 87 mg/dL (65-115); Osmolality Calculated 279 mOsm/kg (285-295); Potassium 4.1 mmol/L (3.5-5.1); Sodium 133 mmol/L (136-145); Total Bilirubin 0.4 mg/dL (0.15-1.2); Total Protein 5.5 g/dL (6.6-8.7)
--- NOTE | 2020-12-30 07:13 | PC.NURSE ---
AM NOTE REPORT REC'D FROM SHARON GUTIERREZ - NOTED PT TO HAVE MENTATION CHANGES THROUGHOUT NIGHT AT TIMES - WILL MONITOR - PT CURRENTLY ALERT AND ORIENTATED
[2020-12-30] MEDS: clopidogrel 75 mg Tablet PO (08:10)
[2020-12-30] MEDS: guaiFENesin 600 mg Tablet 1200 MG PO ×2 (08:10→16:46)
[2020-12-30] MEDS: atorvastatin 40 mg Tablet 20 MG PO (08:10)
[2020-12-30] MEDS: montelukast sodium 10 mg Tablet PO (08:10)
[2020-12-30] MEDS: midodrine 5 mg TABLET PO ×2 (08:10→13:10)
[2020-12-30] MEDS: PARoxetine 20 mg Tablet PO (08:11)
[2020-12-30] MEDS: docusate sodium 100 mg Capsule PO ×2 (08:11→16:47)
[2020-12-30] MEDS: apixaban 5 mg Tablet PO ×2 (10:23→21:46)
--- NOTE | 2020-12-30 10:45 | PC.NURSE ---
PT DIEGO, PT AT SIDE TO PLACE BOOT AND WORK WITH PATIENT
[2020-12-30] MEDS: TRAMadol 50 mg Tablet PO ×2 (11:29→16:47)
--- NOTE | 2020-12-30 12:04 | PM.PN ---
Subjective Subjective: Interval history: Patient in postop boot but ankle held plantarflexed with at least 4cm distance beteween heel and base of boot. Comlains of pain ankle and knee Vitals/I&O/Wt Last Vital Signs Temp 98.1 F 12/30/20 11:37 Pulse 70 12/30/20 11:37 Resp 18 12/30/20 11:37 BP 108/70 12/30/20 11:37 Pulse Ox 92 12/30/20 11:37 12/29/20 12/30/20 12/30/20 22:59 06:59 14:59 Intake Total 963.75 / 1233.75 970.833 / 2204.583 1200 / 1200 Output Total 550 / 550 450 / 1000 Balance 413.75 / 683.75 520.833 / 1081.703 7643 / 1200 Physical Exam Narrative: EXAM NARRATIVE: Boot adjusted to place ankle in neutral position Urinary Catheter Management^: Ruiz: Cath Placed During This Visit: yes Reason for Continuing Indwelling Catheter: Required Immobilization for Trauma or Surgery or Anesthesia Urinary Catheter Date of Insertion: 12/27/20 Urinary Catheter Time of Insertion: 18:03 Data : 12/30/20 05:33 12/30/20 05:33 A&P Assessment and plan (1) Bimalleolar fracture of left ankle: Status: Acute (2) Fracture of left fibula, shaft: Continue to mobilize. Will need placement Status: Acute Attestations Medical Necessity Statement*: ok for discharge per ortho Coding Level of Care Code Acute Seed Yeast Operator for Sherrie King Diagnoses Bimalleolar fracture of left ankle S82.842A Fracture of left fibula, shaft S82.402A
--- NOTE | 2020-12-30 12:06 | PC.NURSE ---
DR HALINA MEADE IN PTS ROOM - ASSISTED WITH LEFT BOOT PLACEMENT - KRISTIE POORLY - RISKS AND BENEFITS DISCUSSED WITH REGARDING BOOT PLACEMENT AND NEED TO BE UP
[2020-12-30] MEDS: acetaminophen 325 mg Tablet 650 MG PO (13:09)
--- NOTE | 2020-12-30 13:12 | PC.NURSE ---
LEFT BOOT PT REQUESTING TO MULTIPLE STAFF MEMBERS THAT BOOT BE LOOSENED - PER DR MEADE DO NOT REMOVE BOOT - PT LOOSENED BOOT PER HERSELF STATING I WILL NOT WEAR THIS EDUCATION PER THIS NURSE REGARDING IMPORTANCE OF BOOT
--- NOTE | 2020-12-30 16:52 | PC.NURSE ---
MENTATION CHANGE PT QUESTIONING WHEN SHE WILL GO HOME AND PLAN FOR LEFT FOOT BOOT - EDUCATED PT TO IMPORTANCE OF LEFT FOOT BOOT FITTING PROPERLY, PT NOT LOOSENING OR REPOSITIONING FOOT IN BOOT SHE DID EARLIER AND PREVIOUS INTERACTION WITH DR MEADE - PT STATES PATSY LEFT MY BOOT ON ALL DAY - IM FINE WITH IT - THAT HAPPENED YESTERDAY REORIENTATED PT TO THE FACT PT AND DR MEADE BOTH ATTEMPTED TO PLACE LEFT BOOT CORRECTLY TODAY - PT STATES OH YES, I KNOW
--- NOTE | 2020-12-30 18:16 | P.PN_ITS ---
Subjective Subjective: Interval history: Patient was seen and examined this morning.She deny any chest pain, sob,nausea, vomiting,abdominal pain,any bleeding, any urinary complain. She has remained afebrile. Her other vitals and labs have been reviewed. Medications: Reviewed: Yes Vitals/I&O/Wt Last Vital Signs Temp 97.7 F 12/30/20 15:55 Pulse 69 12/30/20 15:55 Resp 17 12/30/20 15:55 BP 116/70 12/30/20 15:55 Pulse Ox 98 12/30/20 15:55 12/30/20 12/30/20 12/30/20 06:59 14:59 22:59 Intake Total 970.833 / 2204.583 1200 / 1200 1000 / 2200 Output Total 450 / 1000 650 / 650 Balance 520.833 / 8434.134 1731 / 1200 350 / 1550 Physical Exam Const: COMMON NORMALS: patient oriented x3 HENMT: COMMON NORMALS: normocephalic and atraumatic HEAD & SCALP: normocephalic and atraumatic Chest: CHEST: Yes Symmetrical chest wall rise Resp: COMMON NORMALS: clear to auscultation bilaterally EFFORT & INSPECTION: Yes symmetric chest movement AUSCULTATION: clear to auscultation bilaterally Cardio: COMMON NORMALS: regular rate, regular rhythm, S1 normal heart sound present, S2 normal heart sound present, No gallops present (Cardio), No murmurs present (Cardio), No rub (Cardio) and Peripheral pulses 2+ throughout RATE: regular rate RHYTHM: regular rhythm HEART SOUNDS: S1 normal heart sound present and S2 normal heart sound present PERIPHERAL PULSES: Peripheral pulses 2+ throughout GI: COMMON NORMALS: Normal to inspection, nondistended, normoactive bowel sounds present, Soft to palpation, non-tender, No hepatosplenomegaly present and no masses AUSCULTATION: Yes normoactive bowel sounds PALPATION: Yes Soft to palpation and Yes No hepatosplenomegaly present RECTAL EXAM: deferred Extremity: COMMON NORMALS: no clubbing, cyanosis or edema and no pedal edema Neuro: COMMON NORMALS: patient oriented x3 Urinary Catheter Management^: Ruiz: Cath Placed During This Visit: yes Reason for Continuing Indwelling Catheter: Required Immobilization for Trauma or Surgery or Anesthesia Urinary Catheter Date of Insertion: 12/27/20 Urinary Catheter Time of Insertion: 18:03 Data : 12/30/20 05:33 12/30/20 05:33 A&P Assessment and plan (1) Fall: At home, occurred with rising from a seated position Status: Acute Qualifiers: Encounter type: initial encounter Qualified Code(s): W19.XXXA - Unspecified fall, initial encounter (2) Syncope: Possible loss of consciousness but at the very least had presyncope. If there was any loss of consciousness it was quite brief. She does have a pacemaker. Has not had it checked for more than a year. Does not recall any other episodes like this. Denied chest pain. Did not have any focal neurological symptoms Status: Acute Qualifiers: Syncope type: unspecified Qualified Code(s): R55 - Syncope and collapse (3) Fibula fracture: Left leg, proximal and distal. Appreciate Ortho Rec. Status: Acute Qualifiers: Encounter type: initial encounter Fibula location: proximal Fracture morphology: unspecified fracture morphology Fracture type: closed Laterality: left Qualified Code(s): S82.832A - Other fracture of upper and lower end of left fibula, initial encounter for closed fracture (4) Chronic anticoagulation: Xarelto Status: Chronic (5) Pacemaker: Secondary to atrial fibrillation Status: Chronic (6) CAD (coronary artery disease): Has had 2 prior cardiac stents, chronically on Plavix Status: Chronic Qualifiers: Associated angina: without angina Coronary Disease-Associated Artery/Lesion type: [place] artery [place] vs. transplanted heart: [place] heart Qualified Code(s): I25.10 - Atherosclerotic heart disease of [place] coronary artery without angina pectoris (7) Hypertension: Reports that lately her blood pressures have been low Chronically on in, benazepril, Bumex Status: Chronic Qualifiers: Hypertension type: essential hypertension Qualified Code(s): I10 - Essential (primary) hypertension (8) Dyslipidemia: Started on after stent placement, chronically on statin Status: Chronic Additional A&P Information Chronic depression on Paxil Elevated BNP without a history of CHF known to her though is on chronic Bumex Telemetry monitoring Pacemaker check:Done :No issues with pacemaker functioning. Serial cardiac enzymes: No significant delta Monitor CBC Started on Eliqus 5 MG Q12 H Daily.Will switch to Xarelto on discharge. Started on Midodrine for Hypotension. Will continue to monitor 2D Echo : Normal left ventricular cavity size. Moderately decreased left ventricular systolic function. Global left ventricular hypokinesis. Left ventricular ejection fraction is estimated at 42 %. Grade III/IV diastolic dysfunction (restrictive filling pattern), severely elevated filling pressures. Severely thickened mitral valve. Severe mitral annular calcification. No mitral valve stenosis. No mitral valve regurgitation. Moderate aortic valve calcif ication. Mild aortic valve stenosis, mean gradient 5.5 mmHg, LEDY 2.4 cm squared. Mild aortic valve regurgitation. Appreciate Dr. Villeda rec Request records from [place] regarding previous renal function, problem list and last cardiac studies Given no history of chronic kidney disease we will continue Ruiz catheter currently for close monitoring of urine output in the setting of acute kidney injury Continue to hold home JOSE ENRIQUE inhibitor, Bumex, amlodipine Continue home Plavix, Paxil Stool softeners Pain control with tramadol Patient is hesitant to utilize any strong narcotic medications due to responses to medications in the past PT evaluation to assist with education on how to transfer and be safe with fracture Supportive care otherwise Full code Attestations Medical Necessity Statement*: Patient needs to be in hospital for the management of fractures to both the distal and proximal fibula,SHARATH v/s SHARATH ON CKD , anemia,Hypotension,syncope. Coding Level of Care Code Acute Chain Repairer for [facility] Fwd Exam Detailed Diagnoses Fall W19.XXXA Encounter type: initial encounter Syncope R55 Syncope type: unspecified Fibula fracture S82.832A Encounter type: initial encounter Fibula location: proximal Fracture morphology: unspecified fracture morphology Fracture type: closed Laterality: left Chronic anticoagulation Z79.01 Pacemaker Z95.0 CAD (coronary artery disease) I25.10 Associated angina: without angina Coronary Disease-Associated Artery/Lesion type: [place] artery [place] vs. transplanted heart: [place] heart Hypertension I10 Hypertension type: essential hypertension Dyslipidemia E78.5
[2020-12-31] VITALS (15 sets, daily range): BP systolic 102–125; BP diastolic 50–74; PULSE 69–80; RESP 16–18; TEMP 36.4–37.2; O2SAT 90–100
[2020-12-31] MEDS: lanolin oint 7 gm 1 APPLIC TOPICAL (03:57)
[2020-12-31 05:47] LABS: Basophils % 0.3 %; Eosinophils # 0.2 10^3/uL (0.0-0.8); Hematocrit 21.8 % (37.0-47.0); Lymphocytes % 14.4 %; Mean Corpuscular HGB Conc 32.1 g/dL (30.0-36.0); Mean Corpuscular Hemoglobin 28.8 pg (28.0-34.0); Mean Corpuscular Volume 89.7 fL (81-99); Mean Platelet Volume 9.6 fL (7.4-10.4); Monocytes # 0.5 10^3/uL (0.2-0.9); Monocytes % 7.6 %; Neutrophils # 5.17 10^3/uL (1.8-7.7); Neutrophils % 74.3 %; Nucleated Red Blood Cells % 0 %; Platelet Count 236 10^3/cmm (130-400); Red Blood Count 2.43 10^6/uL (4.1-5.3); Red Cell Distribution Width 12.4 % (12.1-15.1)
[2020-12-31 06:10] LABS: Alanine Aminotransferase 10 U/L (0-33); Albumin Level 2.7 g/dL (3.5-5.2); Alkaline Phosphatase 97 IU/L (35-105); Anion Gap 13.1 (5-19); Aspartate Amino Transferase 41 U/L (0-32); Blood Urea Nitrogen 21 mg/dL (8-23); Calcium 8.3 mg/dL (8.5-10.5); Carbon Dioxide 22 mmol/L (22-29); Chloride 104 mmol/L (98-107); Globulin 2.8 g/dL (1.3-4.6); Glucose 80 mg/dL (65-115); Osmolality Calculated 282 mOsm/kg (285-295); Potassium 4.1 mmol/L (3.5-5.1); Sodium 135 mmol/L (136-145); Total Bilirubin 0.4 mg/dL (0.15-1.2); Total Protein 5.5 g/dL (6.6-8.7)
[2020-12-31] MEDS: montelukast sodium 10 mg Tablet PO (08:08)
[2020-12-31] MEDS: guaiFENesin 600 mg Tablet 1200 MG PO ×2 (08:08→16:49)
[2020-12-31] MEDS: TRAMadol 50 mg Tablet PO ×3 (08:08→16:38)
[2020-12-31] MEDS: atorvastatin 40 mg Tablet 20 MG PO (08:09)
[2020-12-31] MEDS: apixaban 5 mg Tablet PO ×2 (08:09→20:43)
[2020-12-31] MEDS: clopidogrel 75 mg Tablet PO (08:09)
[2020-12-31] MEDS: PARoxetine 20 mg Tablet PO (08:09)
[2020-12-31] MEDS: docusate sodium 100 mg Capsule PO ×2 (08:09→16:49)
--- NOTE | 2020-12-31 10:42 | PC.CHAP ---
Pastoral Care Encounter/Spiritual Assessment Type of Contact [] Declined specialty cook visit [] Patient/Family/Request visit [] Outpatient visit [] Follow-up visit [] Physician referral [] Code/Alert [x] Routine visit [] Staff referral [] Actively dying [x] Patient sleeping [] Family support [] [] Out of room [] Palliative care [] [] Receiving care in room [] Pre-surgical visit [] Trauma [] Long length of stay [] ICU visit [] Other: Relational/Emotional Strength [] Patient feels connected with others/family/visitors/staff [] Distress [] Loneliness/isolation [] Abandonment Spirituality of Patient [] Person of Lizzy [] Attends Adventism of their Lizzy [] Believes in Prayer [] Reads Bible or Restoration materials [] There are Spiritual issues to be addressed Force Adjustment Supervisor Interventions [] Prayer [] Active listening [] Non-anxious presence [] Spiritual/emotional support [] Crisis/trauma care [] Spiritual counseling [] Bereavement support [] Provided bereavement packet [] Provided Bible/devotional materials [] Provided toy/stuffed animal, coloring book to patient or family member [] Provided Communion [] Anointing/Divide [] Salvation [] Completed spiritual assessment [] Other: Impact on Illness or Injury [] Angry [] Fearful [] Anxious [] Often cries [] Exhaustion [] Unable to work [] Unable to attend protestant [] Unable to walk/stand [] Unable to read [] Unable to drive [] Unable to eat/drink [] Unable to sleep [] Unable to be with family [] Patient intubated [] Other: Summary Time spent with patient
--- NOTE | 2020-12-31 11:50 | PC.NURSE ---
PT UP WITH [facility] - IN CHAIR WILL ENCOURAGE PT TO REMAIN THERE
--- NOTE | 2020-12-31 13:42 | PC.NURSE ---
PHYSICAL THERAPY PHYSICAL THERAPY AT SIDE TO ASSIST TO BED - KRISTIE WELL - LEFT BOOT REMAINS IN PLACE
--- NOTE | 2020-12-31 14:13 | PC.NURSE ---
AM NOTE 0700 LATE ENTRY NOTED PT TO HAVE HEEL BOOTS IN PLACE
[2020-12-31 14:28] LABS: Hematocrit 22.7 % (37.0-47.0); Hemoglobin 7.3 g/dL (11.5-15.3)
[2020-12-31] MEDS: acetaminophen 325 mg Tablet 650 MG PO (14:50)
--- NOTE | 2020-12-31 17:03 | PC.NURSE ---
1st UNIT OF [facility] UNIT [id number] BEGAN TRANSFUSION AT 50ML/HR - TOLERATED WELL - AFTER 15 MINUTES INFUSION INCREASED TO 125 - KRISTIE WELL - VSS - NO S/S OF REACTION NOTED
--- NOTE | 2020-12-31 20:51 | P.PN_ITS ---
Subjective Subjective: Interval history: Patient was seen and examined this morning.She deny any chest pain, sob,nausea, vomiting,abdominal pain,any bleeding, any urinary complain. She has remained afebrile. Her other vitals and labs have been reviewed. Medications: Reviewed: Yes Vitals/I&O/Wt Last Vital Signs Temp 98.8 F 12/31/20 19:58 Pulse 70 12/31/20 19:58 Resp 16 12/31/20 19:58 BP 118/66 12/31/20 19:58 Pulse Ox 100 12/31/20 19:58 12/31/20 12/31/20 12/31/20 06:59 14:59 22:59 Intake Total 360 / 360 470 / 830 Output Total 700 / 1350 600 / 600 Balance -700 / 850 360 / 360 -130 / 230 Physical Exam Const: COMMON NORMALS: patient oriented x3 HENMT: COMMON NORMALS: normocephalic and atraumatic HEAD & SCALP: normocephalic and atraumatic Chest: CHEST: Yes Symmetrical chest wall rise Resp: COMMON NORMALS: clear to auscultation bilaterally EFFORT & INS PECTION: Yes symmetric chest movement AUSCULTATION: clear to auscultation bilaterally Cardio: COMMON NORMALS: regular rate, regular rhythm, S1 normal heart sound present, S2 normal heart sound present, No gallops present (Cardio), No murmurs present (Cardio), No rub (Cardio) and Peripheral pulses 2+ throughout RATE: regular rate RHYTHM: regular rhythm HEART SOUNDS: S1 normal heart sound present and S2 normal heart sound present PERIPHERAL PULSES: Peripheral pulses 2+ throughout GI: COMMON NORMALS: Normal to inspection, nondistended, normoactive bowel sounds present, Soft to palpation, non-tender, No hepatosplenomegaly present and no masses AUSCULTATION: Yes normoactive bowel sounds PALPATION: Yes Soft to palpation and Yes No hepatosplenomegaly present RECTAL EXAM: deferred Extremity: COMMON NORMALS: no clubbing, cyanosis or edema and no pedal edema OTHER: Neuro: COMMON NORMALS: patient oriented x3 Urinary Catheter Management^: Ruiz: Cath Placed During This Visit: yes Reason for Continuing Indwelling Catheter: Required Immobilization for Trauma or Surgery or Anesthesia Urinary Catheter Date of Insertion: 12/27/20 Urinary Catheter Time of Insertion: 18:03 Data : 12/31/20 14:16 02/18/21 05:28 A&P Assessment and plan (1) Anemia: Normocytic Anemia; Likely ACD : Her Hb has dropped to 7.3 from 10 of admission there is some dilutional component as she has been on I.V fluids. Patient currently denies any, bright red blood per rectum, dark stool, hematuria. We will send FOBT Plan is to transfuse 1 unit PRBC Monitor CBC We will hold Eliquis for now. Status: Chronic (2) Fall: At home, occurred with rising from a seated position Status: Acute Qualifiers: Encounter type: initial encounter Qualified Code(s): W19.XXXA - Unspecified fall, initial encounter (3) Syncope: Possible loss of consciousness but at the very least had presyncope. If there was any loss of consciousness it was quite brief. She does have a pacemaker. Has not had it checked for more than a year. Does not recall any other episodes like this. Denied chest pain. Did not have any focal neurological symptoms Status: Acute Qualifiers: Syncope type: unspecified Qualified Code(s): R55 - Syncope and collapse (4) Fibula fracture: Left leg, proximal and distal. Appreciate Ortho Rec. Status: Acute Qualifiers: Encounter type: initial encounter Fibula location: proximal Fracture morphology: unspecified fracture morphology Fracture type: closed Laterality: left Qualified Code(s): S82.832A - Other fracture of upper and lower end of left fibula, initial encounter for closed fracture (5) Chronic anticoagulation: Xarelto Status: Chronic (6) Pacemaker: Secondary to atrial fibrillation Status: Chronic (7) CAD (coronary artery disease): Has had 2 prior cardiac stents, chronically on Plavix Status: Chronic Qualifiers: Coronary Disease-Associated Artery/Lesion type: [place] artery [place] vs. transplanted heart: [place] heart Associated angina: without angina Qualified Code(s): I25.10 - Atherosclerotic heart disease of [place] coronary artery without angina pectoris (8) Hypertension: Reports that lately her blood pressures have been low Chronically on in, benazepril, Bumex Status: Chronic Qualifiers: Hypertension type: essential hypertension Qualified Code(s): I10 - Essential (primary) hypertension (9) Dyslipidemia: Started on after stent placement, chronically on statin Status: Chronic Additional A&P Information Chronic depression on Paxil Elevated BNP without a history of CHF known to her though is on chronic Bumex Telemetry monitoring Pacemaker check:Done :No issues with pacemaker functioning. Serial cardiac enzymes: No significant delta Monitor CBC Started on Eliqus 5 MG Q12 H Daily.Will switch to Xarelto on discharge. Started on Midodrine for Hypotension. Will continue to monitor 2D Echo : Normal left ventricular cavity size. Moderately decreased left ventricular systolic function. Global left ventricular hypokinesis. Left ventricular ejection fraction is estimated at 42 %. Grade III/IV diastolic dysfunction (restrictive filling pattern), severely elevated filling pressures. Severely thickened mitral valve. Severe mitral annular calcification. No mitral valve stenosis. No mitral valve regurgitation. Moderate aortic valve calcification. Mild aortic valve stenosis, mean gradient 5.5 mmHg, LEDY 2.4 cm squared. Mild aortic valve regurgitation. Appreciate Dr. Villeda rec Request records from [facility] regarding previous renal function, problem list and last cardiac studies Given no history of chronic kidney disease we will continue Ruiz catheter currently for close monitoring of urine output in the setting of acute kidney injury Continue to hold home JOSE ENRIQUE inhibitor, Bumex, amlodipine Continue home Plavix, Paxil Stool softeners Pain control with tramadol Patient is hesitant to utilize any strong narcotic medications due to responses to medications in the past PT evaluation to assist with education on how to transfer and be safe with fracture Supportive care otherwise Full code Attestations Medical Necessity Statement*: Patient is to be in hospital for management of anemia, and to monitor her drop in hemoglobin.Need for transfusion. Coding Level of Care Code Acute Stock Replenisher for [facility] Fwd Diagnoses Anemia D64.9 Fall W19.XXXA Encounter type: initial encounter Syncope R55 Syncope type: unspecified Fibula fracture S82.832A Encounter type: initial encounter Fibula location: proximal Fracture morphology: unspecified fracture morphology Fracture type: closed Laterality: left Chronic anticoagulation Z79.01 Pacemaker Z95.0 CAD (coronary artery disease) I25.10 Coronary Disease-Associated Artery/Lesion type: [place] artery [place] vs. transplanted heart: [place] heart Associated angina: without angina Hypertension I10 Hypertension type: essential hypertension Dyslipidemia E78.5
[2021-01-01] VITALS: BP 129/78; PULSE 70; RESP 18; TEMP 36.4; O2SAT 100
[2021-01-01 04:00] VITALS: BP 119/71; PULSE 67; RESP 18; TEMP 36.4; O2SAT 97
[2021-01-01 08:00] VITALS: BP 137/71; PULSE 70; RESP 18; TEMP 37; O2SAT 100
[2021-01-01 09:59] LABS: Hematocrit 27.2 % (37.0-47.0); Hemoglobin 8.9 g/dL (11.5-15.3); Mean Corpuscular HGB Conc 32.7 g/dL (30.0-36.0); Mean Corpuscular Hemoglobin 29.4 pg (28.0-34.0); Mean Corpuscular Volume 89.8 fL (81-99); Mean Platelet Volume 9.4 fL (7.4-10.4); Platelet Count 283 10^3/cmm (130-400); Red Blood Count 3.03 10^6/uL (4.1-5.3); Red Cell Distribution Width 12.8 % (12.1-15.1); White Blood Count 6.3 10^3/uL (4.0-10.0)
[2021-01-01 10:23] LABS: Blood Urea Nitrogen 17 mg/dL (8-23); Calcium 8.7 mg/dL (8.5-10.5); Carbon Dioxide 22 mmol/L (22-29); Chloride 103 mmol/L (98-107); Glucose 96 mg/dL (65-115); Osmolality Calculated 281 mOsm/kg (285-295); Sodium 135 mmol/L (136-145)
[2021-01-01] MEDS: guaiFENesin 600 mg Tablet 1200 MG PO (10:38)
[2021-01-01] MEDS: PARoxetine 20 mg Tablet PO (10:38)
[2021-01-01] MEDS: atorvastatin 40 mg Tablet 20 MG PO (10:38)
[2021-01-01] MEDS: montelukast sodium 10 mg Tablet PO (10:38)
[2021-01-01] MEDS: docusate sodium 100 mg Capsule PO (10:38)
[2021-01-01] MEDS: clopidogrel 75 mg Tablet PO (10:38)
[2021-01-01] MEDS: acetaminophen 325 mg Tablet 650 MG PO (10:39)
[2021-01-01 11:01] LABS: Absolute Eosinophils 0.4 10^3/cmm (0.0-0.7); Absolute Neutrophil 4.6 10^3/cmm (1.4-6.5); Absolute Segmented Neutrophil 4.4 10/cmm (1.6-7.1); Band Neutrophils Absolute 0.2 10^3/cmm (0.0-1.2); Basophils Absolute 0.1 10^3/cmm (0.0-0.2); Eosinophils 7 %; Giant Platelets Trace; Lymphocytes 13 %; Monocytes Absolute 0.4 10^3/cmm (0.1-0.6); Platelet Estimate Normal (Normal); Segmented Neutrophils 70 %; Total Cells Counted 100 (0-100)
--- NOTE | 2021-01-01 11:20 | P.DS_ITS ---
Discharge Providers Date of Admission: 12/28/20 06:02 Date of Discharge: January 01, 2021 Attending Provider at Admission: Monica Ragland MD Attending Provider at Discharge: Abdi Conrad MD Diagnoses at Discharge Discharge Diagnosis (1) Anemia: Status: Chronic (2) Syncope: Status: Acute Qualifiers: Syncope type: unspecified Qualified Code(s): R55 - Syncope and collapse (3) Fibula fracture: Status: Acute Qualifiers: Encounter type: initial encounter Fibula location: proximal Fracture morphology: unspecified fracture morphology Fracture type: closed Laterality: left Qualified Code(s): S82.832A - Other fracture of upper and lower end of left fibula, initial encounter for closed fracture (4) Chronic anticoagulation: Status: Chronic Permanent problem details: xarelto (5) Pacemaker: Status: Chronic (6) CAD (coronary artery disease): Status: Chronic Qualifiers: Associated angina: without angina Coronary Disease-Associated Artery/Lesion type: [place] artery [place] vs. transplanted heart: [place] heart Qualified Code(s): I25.10 - Atherosclerotic heart disease of [place] coronary a rtery without angina pectoris (7) Hypertension: Status: Chronic Qualifiers: Hypertension type: essential hypertension Qualified Code(s): I10 - Essential (primary) hypertension (8) Dyslipidemia: Status: Chronic Reason for Visit Reason for Visit: LEFT ANKLE PAIN S/P FALL Hospital Course Hospital Course 80 year old female past medical history of heart failure with reduced ejection fraction , A. fib .s/p pacemaker placement , hypertension, right eye blindness, presented to the emergency room with chief complaint of after experiencing a fall at home. She was sitting down at the table when she stood up and she states she is not really sure what happened she just went down.Further work-up in the ER revealed, She was admitted for the management of fracture of proximal and distal left fibula, orthopedic was on board, s/p post postop boot. Per Dr. Arciniega, patient was placed in correction for facility.She will follow Dr. Pham in 1 month. During the hospital stay he was also worked up for syncope, as well as Hospital course was complicated by hypovolemic shock secondary to overdiuresis, SHARATH versus SHARATH on worsening CKD. She was continued on IV fluids, Bumex and Benzapril was continued to be held, she will continue to hold Bumex as well as Benzapril, till the time she see her primary care physician.She was also placed on midodrine for short period of time, which was later discontinued. SHARATH was improving at the time of discharge.She will continue to hydrate herself well. For her chronic anemia: Normocytic Anemia; Likely ACD : Her Hb has dropped to 7.3 from 10 of admission there is some dilutional component as she has been on I.V fluids. Patient currently denies any, bright red blood per rectum, dark stool, hematuria. She was transfused a unit of blood, hemoglobin at the time of discharge was stable.She was made aware of the signs of blood loss.She will continue to follow-up with her primary care physician with CBC.Pacemaker interrogation was done during the hospital,and the pacemaker was working fine. A. fib was rate controlled, she was discharged on Xarelto, Plavix was held, given her anemia, Xarelto and Plavix together was not needed. For her syncope: No significant arrhythmia was detected on glazier stained glass, 2D echo: Normal left ventricular cavity size. Moderately decreased left ventricular systolic function. Global left ventricular hypokinesis. Left ventricular ejection fraction is estimated at 42 %. Grade III/IV diastolic dysfunction (restrictive filling pattern), severely elevated filling pressures. Severely thickened mitral valve. Severe mitral annular calcification. No mitral valve stenosis. No mitral valve regurgitation. Moderate aortic valve calcification. Mild aortic valve stenosis, mean gradient 5.5 mmHg, LEDY 2.4 cm squared. Mild aortic valve regurgitation.Venous duplex bilateral lower extremity: Negative for DVT. Head CT on admission: Was negative for any acute intracranial pathology. CT cervical spin wo con: No acute fractures. Anterolisthesis of C2 on C3 about 3 mm. Anterolisthesis of C3 on C4 about 2 mm. Anterolisthesis of C4 on C5 about 3 mm. Facet joints are intact with unremarkable alignment. Severe diffuse spondyloarthropathy changes. Bones are diffusely demineralized. Patient responded well to the above medical management and she was discharged in a stable condition to correction. 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 Physical Exam Const: COMMON NORMALS: patient oriented x3 HENMT: COMMON NORMALS: normocephalic and atraumatic HEAD & SCALP: normocephalic and atraumatic Chest: CHEST: Yes Symmetrical chest wall rise Resp: COMMON NORMALS: clear to auscultation bilaterally EFFORT & IN SPECTION: Yes symmetric chest movement AUSCULTATION: clear to auscultation bilaterally Cardio: COMMON NORMALS: regular rate, regular rhythm, S1 normal heart sound present, S2 normal heart sound present, No gallops present (Cardio), No murmurs present (Cardio), No rub (Cardio) and Peripheral pulses 2+ throughout RATE: regular rate RHYTHM: regular rhythm HEART SOUNDS: S1 normal heart sound present and S2 normal heart sound present PERIPHERAL PULSES: Peripheral pulses 2+ throughout GI: COMMON NORMALS: Normal to inspection, nondistended, normoactive bowel sounds present, Soft to palpation, non-tender, No hepatosplenomegaly present and no masses AUSCULTATION: Yes normoactive bowel sounds PALPATION: Yes Soft to palpation and Yes No hepatosplenomegaly present RECTAL EXAM: deferred Extremity: COMMON NORMALS: no clubbing, cyanosis or edema and no pedal edema OTHER: lt Boot Neuro: COMMON NORMALS: patient oriented x3 Urinary Catheter Management^: Ruiz: Cath Placed During This Visit: yes Reason for Continuing Indwelling Catheter: Other Urinary Catheter Date of Insertion: 12/27/20 Urinary Catheter Time of Insertion: 18:03 Discharge Data Data Completed and Pending: Completed Studies During Hospitalization Category Date Time Status CT abdomen pelvis wo con [id number] Urge nt Cat Scan 12/27/20 18:[address] cervical spin wo con* [id number] Urge nt Cat Scan 12/27/20 18:[address] head wo con* 7 0450 Urgent Cat Scan 12/27/20 18:05 Completed XR ankle LT 2V 73 600 Stat Exams 12/27/20 16:28 Completed XR chest 1V kiley ble [id number] Stat Exams 12/27/20 16:30 Completed XR chest 1V kiley ble [id number] Stat Exams 12/29/20 05:46 Completed XR femur RT 1V 73 551 Stat Exams 12/27/20 16:28 Completed XR hip LT 2-3V wo /w pel* [id number] Stat Exams 12/27/20 18:33 Completed XR hip RT 2-3V wo /w pel* [id number] Stat Exams 12/27/20 16:28 Completed XR knee LT 3V* 73 562 Stat Exams 12/27/20 17:37 Completed CV echo complete* [id number] Routine Ultrasound 12/30/20 05:00 [place] [id number] Routin e Ultrasound 12/30/20 02:52 Completed Pending at discharge Category Date Time Status SARS Covid-2 Anti gen Routine Lab 01/01/21 10:04 Uncollected Labs from last 24 hours 01/01/21 01/01/21 12/31/20 09:36 09:36 14:16 WBC 6.3 RBC 3.03 L Hgb 8.9 L 7.3 L Hct 27.2 L 22.7 L MCV 89.8 MCH 29.4 MCHC 32.7 RDW 12.8 Plt Count 283 MPV 9.4 Gran % Cancelled Neut % (Auto) Cancelled Lymph % (Auto) Cancelled Tyler % (Auto) Cancelled Eos % (Auto) Cancelled Baso % (Auto) Cancelled Neut # (Auto) Cancelled Lymph # (Auto) Cancelled Tyler # (Auto) Cancelled Eos # (Auto) Cancelled Baso # (Auto) Cancelled Absolute Gran (aut o) Cancelled Nucleated RBC % (a uto) Cancelled Total Counted 100 Atypical Lymphs % 0.0 Absolute Neutrophi ls 4.6 Segmented Neutroph ils 70 Abs Segm Neuts (Ma n) 4.4 Band Neutrophils 3.0 Abs Band Neuts (Ma n) 0.2 Lymphocytes (Manua l) 13 Monocytes (Manual) 6.0 Absolute Monocytes 0.4 Eosinophils (Manua l) 7 Absolute Eosinophi ls 0.4 Basophils (Manual) 1.0 Absolute Basophils 0.1 Nucleated RBCs # Cancelled Platelet Estimate Normal Giant Platelets Trace Sodium 135 L Potassium 4.0 Chloride 103 Carbon Dioxide 22 Anion Gap 14.0 BUN 17 Creatinine 1.6 H GFR Calculation Not Reportable Glucose 96 Calculated Osmolal ity 281 L Calcium 8.7 Blood Type Rho(D) Type Antibody Screen Crossmatch 12/29/20 05:17 WBC RBC Hgb Hct MCV MCH MCHC RDW Plt Count MPV Gran % Neut % (Auto) Lymph % (Auto) Tyler % (Auto) Eos % (Auto) Baso % (Auto) Neut # (Auto) Lymph # (Auto) Tyler # (Auto) Eos # (Auto) Baso # (Auto) Absolute Gran (aut o) Nucleated RBC % (a uto) Total Counted Atypical Lymphs % Absolute Neutrophi ls Segmented Neutroph ils Abs Segm Neuts (Ma n) Band Neutrophils Abs Band Neuts (Ma n) Lymphocytes (Manua l) Monocytes (Manual) Absolute Monocytes Eosinophils (Manua l) Absolute Eosinophi ls Basophils (Manual) Absolute Basophils Nucleated RBCs # Platelet Estimate Giant Platelets Sodium Potassium Chloride Carbon Dioxide Anion Gap BUN Creatinine GFR Calculation Glucose Calculated Osmolal ity Calcium Blood Type O Negative Rho(D) Type Negative Antibody Screen Negative Crossmatch See Detail Vitals: Last Vital Signs Temp 98.6 F 01/01/21 08:00 Pulse 70 01/01/21 08:00 Resp 18 01/01/21 08:00 BP 137/71 01/01/21 08:00 Pulse Ox 100 01/01/21 08:00 Discharge Plan Discharge Patient Disposition: Xfer SNF Condition: Stable Prescriptions: Continued paroxetine HCl 20 mg Tablet 20 mg PO DAILY RF: 0 simvastatin 20 mg Tablet 20 mg PO DAILY RF: 0 montelukast 10 mg Tablet 10 mg PO DAILY RF: 0 aluminum-magnesium hydroxide 500-500 mg/5 mL Suspension 30 ml PO BID PRN (Reason: prn) RF: 0 Mucinex 1,200 mg Tablet Extended Release 12hr 1,200 mg PO BID RF: 0 albuterol sulfate 2.5 mg /3 mL (0.083 %) Solution For Nebulization 2.5 mg INHALATION Q6H PRN (Reason: Shortness Of Breath) RF: 0 Changed amlodipine 10 mg Tablet 5 mg PO DAILY Qty: 0 RF: 0 Xarelto 20 mg Tablet 15 mg PO DAILY Qty: 0 RF: 0 Held bumetanide 1 mg Tablet 2 mg PO DAILY RF: 0 Hold Instructions: Resume on 01/17/21. benazepril 20 mg Tablet 20 mg PO DAILY RF: 0 Hold Instructions: Resume on 01/17/21. Discontinued clopidogrel [Plavix] 75 mg Tablet 75 mg PO DAILY RF: 0 Discharge Orders: Discharge Order (Routine); Ordered 01/01/21 Ordered By: Abdi Conrad Referrals: Ras Villeda MD [Physician] - 1 month Discharge Diet: Low Salt Discharge Activity: Increase activity as tolerated and As per PT/OT instructions Patient Instructions: Ankle Fracture (DC), Coronary Artery Disease in Women (DC), Chronic Hypertension (DC), Anemia (DC) Activity Restrictions/Additional Instructions: Patient has been asked to continue to hold Bumex, as well as Benzapril. She will follow up with her primary care physician in 10 days with a repeat BMP. To monitor for her serum creatinine and a decision regarding initiation of Bumex as well as b Benzapril. SHe has also been advised to monitor for any signs of bleeding, any bright red blood per rectum, any dark stool, hematuria, any dizziness, as she is on Xarelto. Discharge Attestations Time Spent in Discharge Care*: greater than 30 min Specific Discharge Activities: educating patient, educating and/or supporting family/caregiver, discussing with pcp/other providers, discussing with insurance case manager/social workers/dc planners, documenting/other paperwork and evaluating patient/reviewing data Status at Discharge: Cognitive status at discharge: cognitively intact , Behavioral status at discharge: cooperative , Functional status at discharge: other assisted ambulation Overall status at discharge: patient is back to baseline Quality Metrics Clinical Quality Measures During this hospital stay, did patient experience: None Coding Level of Care Code Acute Director Property for [employer] Fwd Diagnoses Anemia D64.9 Syncope R55 Syncope type: unspecified Fibula fracture S82.832A Encounter type: initial encounter Fibula location: proximal Fracture morphology: unspecified fracture morphology Fracture type: closed Laterality: left Chronic anticoagulation Z79.01 Pacemaker Z95.0 CAD (coronary artery disease) I25.10 Associated angina: without angina Coronary Disease-Associated Artery/Lesion type: [place] artery [place] vs. transplanted heart: [place] heart Hypertension I10 Hypertension type: essential hypertension Dyslipidemia E78.5
[2021-01-01 13:08] LABS: SARS Covid-2 Antigen Negative (Negative)
[2021-01-01 13:55] VITALS: BP 137/71; PULSE 70; RESP 18; TEMP 37; O2SAT 100
== END 2021-01-01 13:55 | disposition skilled nursing facility (03) | DRG 562 ==
LOC: ER 20:01 → MEDSURG 20:46
PROVIDERS: Emergency Medicine; Internal Medicine; Admitting Provider Hospitalist; Emergency Provider Emergency Medicine; Visit Provider Internal Medicine
DX: S82.402A Unspecified fracture of shaft of left fibula, initial encounter for closed fracture (principal); R57.1 Hypovolemic shock; N17.9 Acute kidney failure, unspecified; I13.0 Hypertensive heart and chronic kidney disease with heart failure and stage 1 through stage 4 chronic kidney disease, or unspecified chronic kidney disease; S82.845A Nondisplaced bimalleolar fracture of left lower leg, initial encounter for closed fracture; W18.30XA Fall on same level, unspecified, initial encounter; R55 Syncope and collapse; I25.10 Atherosclerotic heart disease of native coronary artery without angina pectoris; Z95.5 Presence of coronary angioplasty implant and graft; Z95.0 Presence of cardiac pacemaker; I48.91 Unspecified atrial fibrillation; H54.61 Unqualified visual loss, right eye, normal vision left eye; F32.9 Major depressive disorder, single episode, unspecified; I50.9 Heart failure, unspecified; N18.9 Chronic kidney disease, unspecified; Z87.891 Personal history of nicotine dependence; Z79.01 Long term (current) use of anticoagulants; D63.1 Anemia in chronic kidney disease; I95.9 Hypotension, unspecified; I35.1 Nonrheumatic aortic (valve) insufficiency
CPT/HCPCS: 36415; 36416; 36430; 36600; 51702; 70450; 71045; 72125; 73502; 73551; 73562; 73600; 74176; 80048; 80051; 80053; 80306; 81003; 82330; 82550; 82805; 82962; 83605; 83735; 83880; 84100; 84484; 85007; 85014; 85018; 85025; 85027; 85378; 85610; 85730; 86850; 86900; 86920; 87426; 93005; 93306; 93970; 96361; 96374; 96375; 97110; 97162; 97530; 99285; G0378; J2270; J2310; J2405; J3490; J7030; J7040; J7050; P9016

== ENCOUNTER 2021-01-21 09:40 | Outpatient (CLI) | payer MEDICARE, BC, SELFPAY ==
--- NOTE | 2021-01-21 09:54 | XR_ITS ---
WS: [id number] Left ankle, 3 views, 01/21/2021 Clinical Data: S82.843A - Displaced bimalleolar fracture of unspecified lower leg, initial encounter for closed fracture Comparison: Left ankle, 12/27/2020. Findings: There is a faint fracture line still visible over the distal left fibula. There are small fragments i nferior to the tip of the medial malleolus which could represent avulsion fracture fragments. No soft tissue swelling over the medial or lateral malleolus can be seen. The ankle mortise is normal . XR/XR ankle LT min 3V* [id number] Impression: 1. Almost totally healed fracture of distal left fibula. 2. Small fragments inferior to tip of medial malleolus which may represent avul crow fracture fragments.
== END 2021-01-21 09:41 | disposition home or self-care (01) ==
PROVIDERS: Visit Provider Orthopaedic Surgery
DX: S82.843A Displaced bimalleolar fracture of unspecified lower leg, initial encounter for closed fracture (principal); S82.832A Other fracture of upper and lower end of left fibula, initial encounter for closed fracture; X58.XXXA Exposure to other specified factors, initial encounter
CPT/HCPCS: 73610